=== PATIENT | female | born 1965 | race African-American/Black ===

== ENCOUNTER 2023-10-06 22:02 | Emergency (ER) | payer MEDICAID ==
[~2023-10-06] VITALS: Ht 162.6 cm; Wt 68.5 kg
[2023-10-07 00:55] VITALS: BP 114/88; PULSE 99; RESP 20; TEMP 97.9; O2SAT 99
== END 2023-10-07 01:04 | disposition home or self-care (01) ==
LOC: ER 22:02
DX: M25.532 Pain in left wrist (principal); E78.5 Hyperlipidemia, unspecified; I10 Essential (primary) hypertension; Z86.73 Personal history of transient ischemic attack (TIA), and cerebral infarction without residual deficits
CPT/HCPCS: 93971

== ENCOUNTER 2024-06-27 18:37 | Emergency (ER) | payer MEDICARE, MEDICAID ==
[~2024-06-27] VITALS: Ht 162.6 cm; Wt 69.9 kg
--- NOTE | 2024-06-27 21:28 | ED.PDOC ---
Back pain HPI HPI Comments 58-year-old female presents to ER with complaints of neck pain x1 week. Patient reports that she started experiencing unprovoked pain and "swelling" to anterior neck with associated body aches x1 week. She rates her current pain a 9/10. Denies use of medications for current symptoms. Patient presents to ER ambulatory on arrival, with steady gait, in no distress and notes she is following up with her PCP next month. Denies fever, headache, numbness/tingling, n/v, shortness of breath, chest pain, cough, sore throat or any further symptoms/complaints Chief Complaint: Neck Pain Time Seen by MD: 18:58 Primary Care Provider: "[facility]" Reviewed Notes: Nurses Notes, Medications, Allergies Allergies: Uncoded Allergies: DOXYCLYCINE (Allergy, Unknown, 06/27/24) SERIQUIL (Allergy, Unknown, 06/27/24) SULFA (Allergy, Unknown, 06/27/24) Home Meds Active Scripts Acetaminophen (Acetaminophen) 500 Mg Tab, 500 MG PO Q4HPRN, #30 TAB 0 Refills Prov:WING VELARDE 06/27/24 Amoxicillin & Pot Clavulanate (Amoxicillin/Potassium Cla) 875 Mg Tab, 1 TAB PO BID for 7 Days, #14 TAB 0 Refills Prov:WING VELARDE 06/27/24 Information Source: Patient Mode of Arrival: Ambulatory Past Medical History PAST MEDICAL HISTORY: High Lipids, HTN, Thyroid Surgical History: Cholecystectomy, Hernia Repair, Tonsillectomy Surgical History (Other): CERVICAL SPINE SURGERY X2 REPAIRER HAIRSPRING History: No Pertinent REPAIRER HAIRSPRING History Family History Family History: Unknown Social History Smoker: Non-Smoker Alcohol: Denies ETOH Use Drugs: Denies Drug Use Lives In: Home Constitutional: reports: others ( STATED IN HPI) EENTM: denies: blurred vision, double vision, ear bleeding, ear discharge, ear drainage, ear pain, ear ringing, eye pain, eye redness, hearing loss, mouth pain, mouth swelling, nasal discharge, nose bleeding, nose congestion, nose pain, photophobia, tearing, throat pain, throat swelling, voice changes, others Respiratory: denies: cough, hemoptysis, orthopnea, SOB at rest, shortness of breath, SOB with excertion, stridor, wheezing, others Cardiovascular: denies: chest pain, dizzy spells, diaphoresis, Dyspnea on exertion, edema, irregular heart beat, left arm pain, lightheadedness, palpitations, PND, syncope, others Gastrointestinal: denies: abdomen distended, abdominal pain, blood streaked bowels, constipated, diarrhea, dysphagia, difficulty swallowing, hematemesis, melena, nausea, poor appetite, poor fluid intake, rectal bleeding, rectal pain, vomiting, others Genitourinary: denies: abnormal vagina bleeding, burning, dyspareunia, dysuria, flank pain, frequency, hematuria, incontinence, pain, , vagina discharge, urgency, others Neurological: denies: dizziness, fainting, headache, left sided numbness, left sided weakness, numbness, paresthesia, pre-existing deficit, right sided numbness, right sided weakness, seizure, speech problems, tingling, tremors, weakness, others Musculoskeletal: reports: others ( STATED IN HPI) Integumetry: denies: bruises, change in color, change in hair/nails, dryness, laceration, lesions, lumps, rash, wounds, others Allergic/Immunocompromised: denies: Difficulty Healing, Frequent Infections, Hives, Itching, others Hematologic/Lymphatic: denies: anemia, blood clots, easy bleeding, easy bruising, swollen glands, others Endocrine: denies: excessive hunger, excessive sweating, excessive thirst, excessive urination, flushing, intolerance to cold, intolerance to heat, unexplained weight gain, unexplained weight loss, others Psychiatric: denies: anxiety, bipolar disorder, depression, hopeless, panic disorder, schizophrenia, sleepless, suicidal, others Physical Exam General Appearance: No Apparent Distress HEENT: PERRL/EOMI, Pharyngeal Erythema (Mild swelling/erythema noted to lingual tonsil, no exudates noted. Uvula-normal), TMs Normal Neck: Full Range of Motion, Non-Tender, Thyromegaly (With small left-sided palpable thyroid nodule) Respiratory: Chest Non-Tender, Lungs Clear, No Accessory Muscle Use, No Respiratory Distress, Normal Breath Sounds Cardiovascular: No Murmur, No Gallop, Regular Rate/Rhythm Breast Exam: Deferred Gastrointestinal: NOT DONE Genitalia: Deferred Pelvic: Deferred Rectal: Deferred Extremities: Normal capillary refill, Normal range of motion Neurologic: Alert, academic coach II-XII nml as Tested, No Motor Deficits, Normal Affect, Normal Mood, No Sensory Deficits Cerebellar Function: Normal Reflexes: Normal Skin: Dry, Normal Color, Warm Peripheral Pulses: 2+ carotid (R), 2+ carotid (L), 2+ Radial (R), 2+ Radial (L), 2+ Brachial (R), 2+ Brachial (L) Lymphatic: No Adenopathy Was a procedure done? Was a procedure done?: No Sedation Sedation?: No Back Pain Differential Dx Differential Diagnosis: Fracture, Strain, Other (MASS, NEUROVASCULAR INJURY) X-Ray, Labs, Meds, VS Vital Signs Date Time Temp Pulse Resp B/P (MAP) Pulse Ox O2 Delivery O2 Flow Rate FiO2 06/27/24 21:53 97.7 84 12 132/92 (105) 96 97.7 06/27/24 18:52 98.3 103 16 134/100 (111) 99 Lab Test 06/27/24 21:37 Range/Units White Blood Count 6.2 4.4-10.8 10^3/uL Red Blood Count 4.22 4.0-5.20 10^6/uL Hemoglobin 13.0 12.2-16.2 g/dL Hematocrit 38.8 36.0-46.0 % Mean Corpuscular Volume 91.9 80.0-100.0 fL Mean Corpuscular Hemoglobin 30.7 28.0-32.0 pg Mean Corpuscular Hemoglobin Concent 33.5 32.0-36.0 g/dL Red Cell Distribution Width 13.1 11.8-14.3 % Platelet Count 247 140-450 10^3/uL Mean Platelet Volume 6.8 L 6.9-10.8 fL Neutrophils (%) (Auto) 31.2 L 37.0-80.0 % Lymphocytes (%) (Auto) 54.8 H 10.0-50.0 % Monocytes (%) (Auto) 11.7 0.0-12.0 % Eosinophils (%) (Auto) 1.7 0.0-7.0 % Basophils (%) (Auto) 0.6 0.0-2.0 % Neutrophils # (Auto) 1.9 1.6-8.6 10 ^3/uL Lymphocytes # (Auto) 3.4 0.4-5.4 10 ^3/uL Monocytes # (Auto) 0.7 0-1.3 10 ^3/uL Eosinophils # (Auto) 0.1 0-0.8 10 ^3/uL Basophils # (Auto) 0 0-0.2 10 ^3/uL Nucleated Red Blood Cells 0.3 % Sodium Level 142 136-145 mmol/L Potassium Level 3.5 3.5-5.1 mmol/L Chloride Level 103 98-107 mmol/L Carbon Dioxide Level 31 20-31 mmol/L Anion Gap 8 5-15 Blood Urea Nitrogen 8 L 9-23 mg/dL Creatinine 0.67 0.550-1.02 mg/dL Glomerular Filtration Rate Calc 101 >90 mL/min BUN/Creatinine Ratio 11.9 10.0-20.0 Serum Glucose 77 74-106 mg/dL Calcium Level 10.6 H 8.7-10.4 mg/dL Current Medications Medications (Trade) Dose Ordered Sig/Carlos Enrique Route Start Time Stop Time Status Last Admin Acetaminophen/ Hydrocodone Bitart ([place] 5/325MG Tab) 1 tab ONCE ONCE PO 06/27/24 21:30 06/27/24 21:31 DC 06/27/24 21:43 Ondansetron HCl (Zofran Po) 4 mg ONCE ONCE PO 06/27/24 21:30 06/27/24 21:31 DC 06/27/24 21:43 PATIENT: RAMAN REICH LACCT: [id number]: [id number] : 1965 LOC: ER ROOM / BED: / AGE / SEX: 58 / F ADM STATUS: REG ER SERVICE 16 ORDERING PHYSICIAN: WING VELARDE PROCEDURE(s): NKICT - NECK WITHOUT CONTRAST REASON: neck pain/swelling ORDER NUMBER(s): [id number], ACCESSION NUMBER(s): [id number] _ Procedure: CT NECK WITHOUT CONTRAST Study Date and Requested Time: 06/27/2024 09:24 PM History: neck pain/swelling Comparison: None Dose: CTDI: 19.21 mGy DLP: 550 mGycm Technique: Multiplanar images obtained through the neck without contrast Findings: There is prominence of the lingual tonsil. Otherwise, Nasopharynx, oropharynx, hypopharynx, and larynx normal in caliber without evidence of focal mass. Parotid, submandibular, and sublingual glands within normal limits. Tongue within normal limits. No evidence of significant cervical lymphadenopathy. Heterogeneous appearance of the thyroid gland with a 0.6 cm left thyroid lobe nodule. Postsurgical changes of suboccipital craniotomy. 1 cm right apical mixed ground-glass and solid nodule. Multilevel moderate degenerative changes of the cervical spine. Anterior spinal fusion of C5-C6 with large anterior bridging osteophyte at C4-C5 and C7-T1 Impression: Limited noncontrast imaging. Prominence of the lingual tonsil. Heterogeneous appearance of the thyroid gland with 0.6 cm left thyroid lobe nodule. 1 cm right apical mixed ground-glass and solid nodule. CT chest is recommended for further evaluation. ATED BY: LESLEE MOREAU DO DICTATED DATE/TIME: 06/27/242149 SIGNED BY: LESLEE MOREAU DO SIGNED DATE/TIME: 06/27/242149 CC: CBC reviewed-WBC normal, neutrophils 31.2, lymphocytes 54.8 BMP reviewed-calcium 10.6 [place] 5/325 mg p.o. ordered Zofran 4 mg p.o. ordered Patient tolerating p.o. intake well and reported improvement in symptoms prior to discharge CT neck without contrast reviewed and discussed with patient full details. Patient verbalized understanding Patient provided a copy of CT neck imaging report and advised to follow up with PCP upon discharge further evaluation and for CT chest Advised to follow up with PCP in 1-2 days Patient verbalized understanding and agreeable with current plan of care Advised to return to ER immediately if symptoms worsen Images Reviewed?: Images reviewed and evaluated by me Time of 1ST Reevaluation: 21:22 Reevaluation 1ST: N/A Time of 2ND Reevaluation: 22:42 Reevaluation 2ND: Improved Patient Education/Counseling: Diagnosis, Treatment, Prognosis, Need For Follow Up Family Education/Counseling: No Family Present Departure 1 Departure Time of Disposition: 22:44 Impression: Primary Impression: Lingual tonsillitis Additional Impressions: Thyroid nodule Nodule of apex of right lung Disposition: HOME / SELF CARE / HOMELESS Condition: Stable e-Prescriptions Acetaminophen (Acetaminophen) 500 Mg Tab 500 MG PO Q4HPRN, #30 TAB 0 Refills Prov: WING VELARDE 06/27/24 Amoxicillin & Pot Clavulanate (Amoxicillin/Potassium Cla) 875 Mg Tab 1 TAB PO BID for 7 Days, #14 TAB 0 Refills Prov: WING VELARDE 06/27/24 Discharged With: Friend Critical Care Note Critical Care Time?: No Stability Stability form required: No Heart Score Heart Score: Heart Score Response (Comments) Value History N/A 0 EKG N/A 0 Age N/A 0 Risk Factors N/A 0 Troponin N/A 0 Total 0 WING VELARDE Jun 27, 2024 21:28
[2024-06-27] MEDS: HYDROcodone-ACET 5/325MG TAB PO ONE (21:43)
[2024-06-27] MEDS: ONDANSETRON ODT 4 MG TAB PO ONE (21:43)
[2024-06-27 21:53] VITALS: BP 132/92; TEMP 97.7
--- NOTE | 2024-06-27 21:53 | DVH ---
_ Procedure: CT NECK WITHOUT CONTRAST Study Date and Requested Time: 06/27/2024 09:24 PM History: neck pain/swelling Comparison: None Dose: CTDI: 19.21 mGy DLP: 550 mGycm Technique: Multiplanar images obtained through the neck without contrast Findings: There is prominence of the lingual tonsil. Otherwise, Nasopharynx, oropharynx, hypopharynx, and janny nx normal in caliber without evidence of focal mass. Parotid, submandibular, and sublingual glands within normal limits. Tongue within normal limits. No evidence of significant cervical lymphadenopathy. Heterogeneous appearance of the thyroid gland with a 0.6 cm left thyroid lobe nodule. Postsurgical changes of suboccipital craniotomy. 1 cm right apical mixed ground-glass and solid nodule. Multilevel moderate degenerative changes of the cervical spine. Anterior spinal fusion of C5-C6 with large anterior bridging osteophyte at C4-C5 and C7-T1 Impression: Limited noncontrast imaging. Prominence of the lingual tonsil. Heterogeneous appearance of the thyroid gland with 0.6 cm left thyroid lobe nodule. 1 cm right apical mixed ground-glass and solid nodule. CT chest is recommended for further evaluatio n.
[2024-06-27 22:03] LABS: Basophils # (auto) 0 10 ^3/uL (0-0.2); Basophils % (auto) 0.6 % (0.0-2.0); Eosinophils # (auto) 0.1 10 ^3/uL (0-0.8); Eosinophils % (auto) 1.7 % (0.0-7.0); Hematocrit 38.8 % (36.0-46.0); Lymphocytes # (auto) 3.4 10 ^3/uL (0.4-5.4); Lymphocytes % (auto) 54.8 % (10.0-50.0); Mean Corpuscular Hemoglobin 30.7 pg (28.0-32.0); Mean Corpuscular Hgb Conc. 33.5 g/dL (32.0-36.0); Mean Corpuscular Volume 91.9 fL (80.0-100.0); Monocytes # (auto) 0.7 10 ^3/uL (0-1.3); Monocytes % (auto) 11.7 % (0.0-12.0); Neutrophils # (auto) 1.9 10 ^3/uL (1.6-8.6); Neutrophils % (auto) 31.2 % (37.0-80.0); Nucleated Red Blood Cells % 0.3 %; Platelet Count (auto) 247 10^3/uL (140-450); Red Blood Cells 4.22 10^6/uL (4.0-5.20); Red Cell Distribution Width 13.1 % (11.8-14.3); White Blood Cell 6.2 10^3/uL (4.4-10.8)
[2024-06-27 22:10] LABS: Chloride 103 mmol/L (98-107); Sodium 142 mmol/L (136-145)
[2024-06-27 22:16] LABS: BUN/Creatinine Ratio 11.9 (10.0-20.0); Glucose 77 mg/dL (74-106)
[2024-06-27 22:28] LABS: Blood Urea Nitrogen 8 mg/dL (9-23); Calcium 10.6 mg/dL (8.7-10.4); Potassium 3.5 mmol/L (3.5-5.1)
[2024-06-27 22:39] LABS: Anion Gap 8 (5-15); Carbon Dioxide 31 mmol/L (20-31)
[2024-06-27] MEDS ORDERED: ACET500T58 PO (22:40)
[2024-06-27] MEDS ORDERED: AMOX875T4 PO (22:40)
[2024-06-27 23:31] VITALS: PULSE 84; RESP 12; O2SAT 96
== END 2024-06-27 23:32 | disposition home or self-care (01) ==
LOC: ER 18:37
DX: J03.90 Acute tonsillitis, unspecified (principal); E04.1 Nontoxic single thyroid nodule; R91.1 Solitary pulmonary nodule; I10 Essential (primary) hypertension; E78.5 Hyperlipidemia, unspecified; Z98.890 Other specified postprocedural states; Z90.89 Acquired absence of other organs; Z90.49 Acquired absence of other specified parts of digestive tract; Z88.2 Allergy status to sulfonamides; Z88.1 Allergy status to other antibiotic agents
CPT/HCPCS: 36415; 70490; 80048; 85025; 99284; Q0162

== ENCOUNTER 2024-08-04 10:16 | Emergency (ER) | payer OTHER, MEDICAID ==
[~2024-08-04] VITALS: Ht 162.6 cm; Wt 68.3 kg
[~2024-08-04 10:16] MED LIST: ACET500T58 PO; AMOX875T4 PO
[2024-08-04 10:26] VITALS: BP 142/95; PULSE 106; RESP 20; TEMP 98.4; O2SAT 99
--- NOTE | 2024-08-04 11:07 | ED.PDOC ---
Back pain HPI HPI Comments A 58 YEAR OLD FEMALE PRESENTS TO THE ED WITH COMPLAINT OF NECK PAIN. 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 PATIENT NOTES THAT SHE HAS A HISTORY OF CHRONIC NECK PAIN AND STATES THAT IT WAS AGGRAVATED WHILE PAINTING. PATIENT REPORTS SHE HAS BEEN TAKING TYLENOL FOR HER PAIN WITH NO IMPROVEMENT. PATIENT DENIES NECK INJURY, FEVER, CHILLS, SHORTNESS OF BREATH, CHEST PAIN, ABDOMINAL PAIN, NAUSEA, VOMITING, HEADACHE, OR OTHER COMPLAINTS. NO OTHER SYMPTOMS OR MODIFYING FACTORS AT THIS TIME. PATIENT IS ALERT, ORIENTED X 4, AND HAS STEADY GAIT. Chief Complaint: Neck Pain Time Seen by MD: 10:17 Primary Care Provider: " [facility]" Reviewed Notes: Nurses Notes, Medications, Allergies Allergies: Coded Allergies: Erythromycin (Verified Allergy, Unknown, 08/04/24) Latex (Verified Allergy, Unknown, 08/04/24) Midodrine (Verified Allergy, Unknown, 08/04/24) Quetiapine (Verified Allergy, Unknown, 08/04/24) Uncoded Allergies: BEE STINGS (Allergy, Unknown, 08/04/24) DARVOCET (Allergy, Unknown, 08/04/24) DOXYCLYCINE (Allergy, Unknown, 06/27/24) SULFA (Allergy, Unknown, 06/27/24) Home Meds Active Scripts Methocarbamol (Methocarbamol) 750 Mg Tab, 750 MG PO BID, #20 TAB Prov:DANNI TELLEZ 08/04/24 Tramadol Hcl (Tramadol Hcl) 50 Mg Tab, 50 MG PO BID, #20 TAB Prov:DANNI TELLEZ 08/04/24 Acetaminophen (Acetaminophen) 500 Mg Tab, 500 MG PO Q4HPRN, #30 TAB 0 Refills Prov:WING VELARDE 06/27/24 Amoxicillin & Pot Clavulanate (Amoxicillin/Potassium Cla) 875 Mg Tab, 1 TAB PO BID for 7 Days, #14 TAB 0 Refills Prov:WING VELARDE 06/27/24 Information Source: Patient Mode of Arrival: Ambulatory Timing: Days Duration: Since onset, Days Location of Back pain: (B) Cervical Severity: Moderate Prehospital treatment: None Quality: Aching, Cramping Onset: Twisting History of: Other (CHRONIC NECK PAIN) Modifying Factors: Movement Associated signs and symptoms: None Past Medical History PAST MEDICAL HISTORY: High Lipids, HTN, Thyroid Past Medical History (Other): CHRONIC NECK PAIN Surgical History: Cholecystectomy, Hernia Repair, Tonsillectomy CONSUMER INSIGHTS INTERN History: No Pertinent CONSUMER INSIGHTS INTERN History Family History Family History: Reviewed,noncontributory to illness Social History Smoker: Non-Smoker Alcohol: Denies ETOH Use Drugs: Denies Drug Use Lives In: Home Constitutional: denies: chills, diaphoresis, fatigue, fever, malaise, sweats, weakness, others EENTM: denies: blurred vision, double vision, ear bleeding, ear discharge, ear drainage, ear pain, ear ringing, eye pain, eye redness, hearing loss, mouth pain, mouth swelling, nasal discharge, nose bleeding, nose congestion, nose pain, photophobia, tearing, throat pain, throat swelling, voice changes, others Respiratory: denies: cough, hemoptysis, orthopnea, SOB at rest, shortness of breath, SOB with excertion, stridor, wheezing, others Cardiovascular: denies: chest pain, dizzy spells, diaphoresis, Dyspnea on exertion, edema, irregular heart beat, left arm pain, lightheadedness, palpitations, PND, syncope, others Gastrointestinal: denies: abdomen distended, abdominal pain, blood streaked bowels, constipated, diarrhea, dysphagia, difficulty swallowing, hematemesis, melena, nausea, poor appetite, poor fluid intake, rectal bleeding, rectal pain, vomiting, others Genitourinary: denies: abnormal vagina bleeding, burning, dyspareunia, dysuria, flank pain, frequency, hematuria, incontinence, pain, , vagina discharge, urgency, others Neurological: denies: dizziness, fainting, headache, left sided numbness, left sided weakness, numbness, paresthesia, pre-existing deficit, right sided numbness, right sided weakness, seizure, speech problems, tingling, tremors, weakness, others Musculoskeletal: reports: muscle pain, neck pain; denies: back pain, gout, joint pain, joint swelling, muscle stiffness, others Integumetry: denies: bruises, change in color, change in hair/nails, dryness, laceration, lesions, lumps, rash, wounds, others Allergic/Immunocompromised: denies: Difficulty Healing, Frequent Infections, Hives, Itching, others Hematologic/Lymphatic: denies: anemia, blood clots, easy bleeding, easy bruising, swollen glands, others Endocrine: denies: excessive hunger, excessive sweating, excessive thirst, excessive urination, flushing, intolerance to cold, intolerance to heat, unexplained weight gain, unexplained weight loss, others Psychiatric: denies: anxiety, bipolar disorder, depression, hopeless, panic disorder, schizophrenia, sleepless, suicidal, others All Other Systems: Reviewed and Negative Physical Exam General Appearance: No Apparent Distress, Normal HEENT: Normal ENT Inspection, PERRL/EOMI, Pharynx Normal, TMs Normal Neck: Full Range of Motion, Normal Inspection, Supple, Tender Lateral (TENDERNESS AND MUSCLE SPAM ON POSTERIOR NECK, NO BONY TENDERNESS, SWELLING AND SWELLING. ) Respiratory: Chest Non-Tender, Lungs Clear, No Accessory Muscle Use, No Respiratory Distress, Normal Breath Sounds Cardiovascular: No Edema, No JVD, No Murmur, No Gallop, Normal Peripheral Pulses, Regular Rate/Rhythm Breast Exam: Deferred Gastrointestinal: No Organomegaly, Non Tender, No Pulsatile Mass, Normal Bowel Sounds, Soft Genitalia: Deferred Pelvic: Deferred Rectal: Deferred Extremities: No calf tenderness, Normal capillary refill, Normal inspection, Normal range of motion, Non-tender, No pedal edema Musculoskeletal : Apperance: Normal Neurologic: Alert, electronic components assembler II-XII nml as Tested, No Motor Deficits, Normal Affect, Normal Mood, No Sensory Deficits Cerebellar Function: Normal Reflexes: Normal Skin: Dry, Normal Color, Warm Peripheral Pulses: 2+ carotid (R), 2+ carotid (L) Lymphatic: No Adenopathy Was a procedure done? Was a procedure done?: No Back Pain Differential Dx Differential Diagnosis: DJD, Musculoskeletal Pain, Strain X-Ray, Labs, Meds, VS Vital Signs Date Time Temp Pulse Resp B/P (MAP) Pulse Ox O2 Delivery O2 Flow Rate FiO2 08/04/24 10:26 98.4 106 20 142/95 (111) 99 98.4 08/04/24 10:26 98.4 106 20 142/95 (111) 99 98.4 X-Ray, Labs, Meds, VS Comment EXTERNAL MEDICAL RECORDS REVIEWED: [NONE] INDEPENDENT HISTORIANS: [NONE] SOCIAL DETERMINANTS OF HEALTH: [NONE] LABS ORDERED: NONE REVIEWED AND INTERPRETED RESULTS: NONE IMAGING ORDERED: XR C-SPINE: [INTERPRETED BY ME. NO ACUTE FINDINGS. NO FRACTURES OR DISLOCATION. PENDING RADIOLOGIST REPORT.] TREATMENTS ORDERED: NONE PROCEDURES PERFORMED: NONE CRITICAL CARE TIME: NONE I HAVE DISCUSSED THE PATIENT WITH THE ATTENDING PHYSICIAN DR. GALINDO AND HE AGREES WITH THE PATIENT'S PLAN OF CARE AND DISPOSITION. BASED ON HISTORY OF PRESENT ILLNESS, AND PHYSICAL EXAM, PATIENT WILL BE DISCHARGED HOME. DISCUSSED PLAN FOR DISCHARGE HOME WITH RX [ULTRAM AND ROBAXIN]. MEDICATION WARNINGS GIVEN. SHARED DECISION MAKING: PATIENT INSTRUCTED TO FOLLOW UP WITH PRIMARY CARE PROVIDER IN 1-2 DAYS FOR RE-EVALUATION OF SYMPTOMS. PATIENT VERBALIZES UNDERSTANDING TO RETURN TO ED FOR NEW OR WORSENING SYMPTOMS OR IF FOLLOW UP WITH PCP CANNOT BE OBTAINED. PATIENT FEELS COMFORTABLE GOING HOME AT THIS TIME. ALL QUESTIONS ADDRESSED AT TIME OF DISCHARGE. Images Reviewed?: Images reviewed and evaluated by me Time of 1ST Reevaluation: 11:15 Reevaluation 1ST: Improved Patient Education/Counseling: Diagnosis, Treatment, Need For Follow Up Family Education/Counseling: Diagnosis, Treatment, Need For Follow Up Medical Screening: No EMC Exist At This Time Departure 1 Departure Time of Disposition: 11:15 Impression: Primary Impression: Cervical muscle strain Qualified Codes: S16.1XXA - Strain of muscle, fascia and tendon at neck level, initial encounter Additional Impression: DDD (degenerative disc disease), cervical Disposition: 01 HOME / SELF CARE / HOMELESS Condition: Stable Additional Instructions: FOLLOW-UP WITH PCP IN 1 TO 2 DAYS. TAKE MEDICATIONS PRESCRIBED. RETURN TO ED FOR ANY NEW OR WORSENING SYMPTOMS. e-Prescriptions Methocarbamol (Methocarbamol) 750 Mg Tab 750 MG PO BID, #20 TAB Prov: DANNI TELLEZ 08/04/24 Tramadol Hcl (Tramadol Hcl) 50 Mg Tab 50 MG PO BID, #20 TAB Prov: DANNI TELLEZ 08/04/24 Discharged With: Self Critical Care Note Critical Care Time?: No Stability Stability form required: No I personally scribed for DANNI TELLEZ ([email or web address]) on 08/04/24 at 11:07. Electronically submitted by Jay Perkins ([email or web address]). DANNI TELLEZ Aug 04, 2024 11:07
[2024-08-04] MEDS ORDERED: TRAM50TA2 PO (11:09)
[2024-08-04] MEDS ORDERED: METH-1182 PO (11:09)
--- NOTE | 2024-08-04 11:12 | DVH ---
INDICATION: NECK PAIN, NO INJURY TECHNIQUE: 3 views of the cervical spine were obtained. COMPARISON: None FINDINGS: The cervical spine is visualized from C1-C7. There is loss of the normal cervical lordosis which can be positional. No fractures or subluxations are identified. Multilevel degenerative changes. Cervical hardware at C5-6. Alignment appears unremarkable. Prevertebral soft tissues are within normal limits. IMPRESSION: 1. No evidence for fracture or subluxation.
== END 2024-08-04 11:15 | disposition home or self-care (01) ==
LOC: ER 10:16
DX: S16.1XXA Strain of muscle, fascia and tendon at neck level, initial encounter (principal); M50.30 Other cervical disc degeneration, unspecified cervical region; I10 Essential (primary) hypertension; G89.29 Other chronic pain; E78.5 Hyperlipidemia, unspecified; E03.9 Hypothyroidism, unspecified; Z90.49 Acquired absence of other specified parts of digestive tract; Z90.89 Acquired absence of other organs; Z98.890 Other specified postprocedural states; Z91.030 Bee allergy status; Z88.2 Allergy status to sulfonamides; Z88.1 Allergy status to other antibiotic agents; Z79.899 Other long term (current) drug therapy; X58.XXXA Exposure to other specified factors, initial encounter; Y93.89 Activity, other specified; Y92.89 Other specified places as the place of occurrence of the external cause; Y99.8 Other external cause status
CPT/HCPCS: 72040

== ENCOUNTER 2024-09-25 10:22 | Emergency (ER) | payer MEDICARE, MEDICAID ==
[~2024-09-25] VITALS: Ht 162.6 cm; Wt 64.9 kg
[~2024-09-25 10:22] MED LIST changes: +METH-1182 PO; +TRAM50TA2 PO
[2024-09-25 11:30] VITALS: BP 134/78; PULSE 97; RESP 17; TEMP 98; O2SAT 97
[2024-09-25] MEDS ORDERED: LIDO5DIS21 TOP (11:49)
[2024-09-25] MEDS ORDERED: METH-1181 PO (11:49)
[2024-09-25] MEDS ORDERED: HYDR-4902 PO (11:49)
--- NOTE | 2024-09-25 11:50 | ED.PDOC ---
Back pain HPI HPI Comments This is a 59-year-old female with a pertinent MHx of chronic upper and lower back pain that presents with a chief complaint of atraumatic lower back pain. Patient currently follows up with Jagdeep Hernandez and reports she is pending pain management referral for the symptoms listed above. Currently reports she is unable to get adequate relief with [id number] Tylenol Motrin. Her pain is aggravated with movement and alleviated at rest. Denies history of chronic steroid use or history of osteoporosis Denies any history of cancer Denies fevers chills night sweats nausea vomiting unintentional weight loss Denies IV drug use history of HIV/TB Denies abdominal "tearing" pain Denies syncope Denies urinary incontinence or urinary changes Denies numbness tingling of the groin or inner thigh Denies previous back procedure or surgery Chief Complaint: Back Pain Time Seen by MD: 11:23 Primary Care Provider: JAGDEEP HERNANDEZ Reviewed Notes: Nurses Notes, Medications, Allergies Allergies: Coded Allergies: Erythromycin (Verified Allergy, Unknown, 08/04/24) Latex (Verified Allergy, Unknown, 08/04/24) Midodrine (Verified Allergy, Unknown, 08/04/24) Quetiapine (Verified Allergy, Unknown, 08/04/24) Uncoded Allergies: BEE STINGS (Allergy, Unknown, 08/04/24) DARVOCET (Allergy, Unknown, 08/04/24) DOXYCLYCINE (Allergy, Unknown, 06/27/24) SULFA (Allergy, Unknown, 06/27/24) Home Meds Active Scripts Methocarbamol (Methocarbamol) 750 Mg Tab, 750 MG PO BID, #20 TAB Prov:DANNI TELLEZ 08/04/24 Tramadol Hcl (Tramadol Hcl) 50 Mg Tab, 50 MG PO BID, #20 TAB Prov:DANNI TELLEZ 08/04/24 Acetaminophen (Acetaminophen) 500 Mg Tab, 500 MG PO Q4HPRN, #30 TAB 0 Refills Prov:WING VELARDE 06/27/24 Amoxicillin & Pot Clavulanate (Amoxicillin/Potassium Cla) 875 Mg Tab, 1 TAB PO BID for 7 Days, #14 TAB 0 Refills Prov:WING VELARDE 06/27/24 Information Source: Patient Mode of Arrival: Ambulatory Past Medical History PAST MEDICAL HISTORY: High Lipids, HTN, Thyroid Surgical History: Cholecystectomy, Hernia Repair, Tonsillectomy 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 History Family History Family History: Reviewed,noncontributory to illness Social History Smoker: Non-Smoker Alcohol: Denies ETOH Use Drugs: Denies Drug Use Lives In: Home All Other Systems: Reviewed and Negative (PER HPI) Physical Exam General Appearance: No Apparent Distress, Normal HEENT: Normal ENT Inspection, Pharynx Normal, TMs Normal Neck: Full Range of Motion, Non-Tender, Normal, Normal Inspection Respiratory: Chest Non-Tender, Lungs Clear, No Accessory Muscle Use, No Respiratory Distress, Normal Breath Sounds Cardiovascular: No Edema, No JVD, No Murmur, No Gallop, Normal Peripheral Pulses, Regular Rate/Rhythm Breast Exam: Deferred Gastrointestinal: No Organomegaly, Non Tender, No Pulsatile Mass, Normal Bowel Sounds, Soft Genitalia: Deferred Pelvic: Deferred Rectal: Deferred Extremities: No calf tenderness, Normal capillary refill, Normal inspection, Normal range of motion, Non-tender, No pedal edema Musculoskeletal : Apperance: Normal Neurologic: Alert, insole bottom filler II-XII nml as Tested, No Motor Deficits, Normal Affect, Normal Mood, No Sensory Deficits Cerebellar Function: Normal Reflexes: Normal Skin: Dry, Normal Color, Warm Lymphatic: No Adenopathy Was a procedure done? Was a procedure done?: No Images 1 - No midline tenderness. No bony step-offs on palpation. Bilateral lumbar sacral paraspinal TTP. Back Pain Differential Dx Differential Diagnosis: Musculoskeletal Pain X-Ray, Labs, Meds, VS Vital Signs Date Time Temp Pulse Resp B/P (MAP) Pulse Ox O2 Delivery O2 Flow Rate FiO2 09/25/24 11:30 98.0 97 17 134/78 (96) 97 98.0 09/25/24 11:30 97 17 97 Room Air 09/25/24 10:50 98.0 107 18 138/88 (105) 96 98.0 X-Ray, Labs, Meds, VS Comment I considered cauda equina, spinal cord compression, vertebral malignancy/mets, acute spinal fracture, vertebral osteomyelitis, epidural abscess, infected or obstructed kidney stone, however this is less likely as the patient does not present with lower back pain red flags symptoms such as bowel or bladder dysfunction, saddle anesthesia, paresthesia, and without any history of malignancy or recent back trauma or spinal interventions. Therefore imaging studies such as a lumbar MRI were not indicated on today's visit. Presentation most consistent with nonemergent musculoskeletal etiology versus nonemergent disc herniation. ED workup: Defer imaging and lab work for outpatient follow up at this time Disposition: Discharge. Strict return precautions discussed with the patient with full understanding. Supportive care advised (rest, ice, heat, NSAIDs, stretching exercises) Massage muscles with cold pack or ice for 20 minutes 4 times per day. Usually most useful if there is swelling during the first 48 hours Heating pad on the most painful area for 20 minutes to relieve muscle spasm Sleep and the most comfortable sleeping position (usually on the side with knees bent) Light stretching, no strenuous activity, avoid frequent bending, avoid carrying heavy objects Discussed possible benefits of yoga and acupuncture Return precautions discussed including Inability to walk/bear weight Paresthesia/weakness/leg pain Fecal/urinary incontinence Any worsening symptoms Checked the CURES website, no history of narcotic use within the past year. Will prescribe [place] p.o. for pain management. Education provided on possible side effects of medication including drowsiness, nausea, respiratory distress, etc. Do not drive, operate heavy machinery or make legal decisions while taking medication. Follow-up with your PMD within 24 to 48 hours. Additional MDM Review of External, Non-ED records: External records reviewed. Discussion with independent historian (EMS, family) history obtained from the patient at bedside Chronic conditions affecting care: none Social determinants of health affecting care: none Consideration of admission (observation or admission): I considered escalation of care to admission for this patient, however given the reassuring workup, the patient is safe for outpatient management. Time of 1ST Reevaluation: 11:46 Reevaluation 1ST: Improved Patient Education/Counseling: Diagnosis, Treatment Family Education/Counseling: Diagnosis, Treatment Departure 1 Departure Time of Disposition: 11:47 Impression: Primary Impression: DDD (degenerative disc disease), cervical Additional Impression: Acute on chronic back pain Disposition: HOME / SELF CARE / HOMELESS Condition: Stable e-Prescriptions Lidocaine (LIDODERM 5% TOPICAL PATCH) 1 Patch Ph 1 PATCH TOP DAILY for 30 Days, #30 PATCH 0 Refills Prov: BELKIS FRANCE NP 09/25/24 Hydrocodone-Acetaminophen (Hydrocodone Bitartrate/AC 5-325 mg) 1 Tab Tab 1 TAB PO Q6HP PRN for 2 Days, #8 TAB 0 Refills Prov: BELKIS FRANCE NP 09/25/24 Methocarbamol (Methocarbamol) 500 Mg Tab 500 MG PO Q8HP PRN for 10 Days, #30 TAB 0 Refills Prov: BELKIS FRANCE NP 09/25/24 Discharged With: Relative Critical Care Note Critical Care Time?: No Stability Stability form required: No Heart Score Heart Score: Heart Score Response (Comments) Value History N/A 0 EKG N/A 0 Age N/A 0 Risk Factors N/A 0 Troponin N/A 0 Total 0 BELKIS FRANCE [facility] September 25, 2024 11:50
== END 2024-09-25 11:59 | disposition home or self-care (01) ==
LOC: ER 10:22
DX: M50.30 Other cervical disc degeneration, unspecified cervical region (principal); M54.50 Low back pain, unspecified; G89.29 Other chronic pain; I10 Essential (primary) hypertension; E78.5 Hyperlipidemia, unspecified; Z88.1 Allergy status to other antibiotic agents; Z88.2 Allergy status to sulfonamides; Z90.49 Acquired absence of other specified parts of digestive tract; Z90.89 Acquired absence of other organs; Z98.890 Other specified postprocedural states

== ENCOUNTER 2024-11-23 10:38 | Emergency (ER) | payer OTHER, MEDICAID ==
[~2024-11-23] VITALS: Ht 162.6 cm; Wt 65.1 kg
[~2024-11-23 10:38] MED LIST changes: +HYDR-4902 PO; +LIDO5DIS21 TOP; +METH-1181 PO
--- NOTE | 2024-11-23 10:57 | ED.PDOC ---
SOB-HPI HPI Comments A 59 YEAR OLD FEMALE PRESENTS TO THE ED WITH COMPLAINT OF COUGH x 1 MONTH. PATIENT STATES THAT SHE HAS BEEN HAVING A LINGERING COUGH FOR THE LAST MONTH. PATIENT IS A SMOKER AND CONTINUES TO SMOKE. PATIENT MENTIONS THAT SHE IS CURRENTLY ON KEFLEX FOR A UTI THAT SHE HAD DIAGNOSED YESTERDAY. PATIENT DENIES FEVER, CHILLS, CHEST PAIN, ABDOMINAL PAIN, NAUSEA, VOMITING, HEADACHE, OR OTHER COMPLAINTS. NO OTHER SYMPTOMS OR MODIFYING FACTORS AT THIS TIME. PATIENT IS ALERT, ORIENTED X 4, AND HAS STEADY GAIT. Time Seen by MD: 10:50 Primary Care Provider: JAGDEEP JAMES Reviewed notes: Nurses Notes, Medications, Allergies Information Source: Patient Mode of Arrival: Ambulatory Severity: Moderate Timing: Minutes Duration: Since onset Context: With Light Exertion PE Risk Factors: None History of: None Prehospital treatment: None Modifying Factors: Nothing Associated Signs and Symptoms: Wheeze, Cough If cough with SOB: Productive Past Medical History PAST MEDICAL HISTORY: Asthma, High Lipids, HTN, Thyroid Past Medical History (Other): POSSIBLE COPD Surgical History: Cholecystectomy, Hernia Repair, Tonsillectomy HOSTAGE NEGOTIATOR 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: No Pertinent HOSTAGE NEGOTIATOR History Family History Family History: Reviewed,noncontributory to illness Social History Smoker: Cigarettes Alcohol: Denies ETOH Use Drugs: Denies Drug Use Lives In: Home Constitutional: denies: chills, diaphoresis, fatigue, fever, malaise, sweats, weakness, others EENTM: denies: blurred vision, double vision, ear bleeding, ear discharge, ear drainage, ear pain, ear ringing, eye pain, eye redness, hearing loss, mouth pain, mouth swelling, nasal discharge, nose bleeding, nose congestion, nose pain, photophobia, tearing, throat pain, throat swelling, voice changes, others Respiratory: reports: cough, shortness of breath, wheezing; denies: hemoptysis, orthopnea, SOB at rest, SOB with excertion, stridor, others Cardiovascular: denies: chest pain, dizzy spells, diaphoresis, Dyspnea on exertion, edema, irregular heart beat, left arm pain, lightheadedness, palpitations, PND, syncope, others Gastrointestinal: denies: abdomen distended, abdominal pain, blood streaked bowels, constipated, diarrhea, dysphagia, difficulty swallowing, hematemesis, melena, nausea, poor appetite, poor fluid intake, rectal bleeding, rectal pain, vomiting, others Genitourinary: reports: burning, dysuria; denies: abnormal vagina bleeding, dyspareunia, flank pain, frequency, hematuria, incontinence, pain, , vagina discharge, urgency, others Neurological: denies: dizziness, fainting, headache, left sided numbness, left sided weakness, numbness, paresthesia, pre-existing deficit, right sided numbness, right sided weakness, seizure, speech problems, tingling, tremors, weakness, others Musculoskeletal: denies: back pain, gout, joint pain, joint swelling, muscle pain, muscle stiffness, neck pain, others Integumetry: denies: bruises, change in color, change in hair/nails, dryness, laceration, lesions, lumps, rash, wounds, others Allergic/Immunocompromised: denies: Difficulty Healing, Frequent Infections, Hives, Itching, others Hematologic/Lymphatic: denies: anemia, blood clots, easy bleeding, easy bruising, swollen glands, others Endocrine: denies: excessive hunger, excessive sweating, excessive thirst, excessive urination, flushing, intolerance to cold, intolerance to heat, unexplained weight gain, unexplained weight loss, others Psychiatric: denies: anxiety, bipolar disorder, depression, hopeless, panic disorder, schizophrenia, sleepless, suicidal, others All Other Systems: Reviewed and Negative Physical Exam General Appearance: No Apparent Distress, Normal HEENT: Normal ENT Inspection, PERRL/EOMI, Pharynx Normal, TMs Normal Neck: Full Range of Motion, Non-Tender, Normal, Normal Inspection Respiratory: Chest Non-Tender, Decreased Breath Sounds, Expiration, No Accessory Muscle Use, No Respiratory Distress, Rhonchi, Wheezing (MILD) Cardiovascular: No Edema, No JVD, No Murmur, No Gallop, Normal Peripheral Pulses, Regular Rate/Rhythm Breast Exam: Deferred Gastrointestinal: No Organomegaly, Non Tender, No Pulsatile Mass, Normal Bowel Sounds, Soft Genitalia: Deferred Pelvic: Deferred Rectal: Deferred Extremities: No calf tenderness, Normal capillary refill, Normal inspection, Normal range of motion, Non-tender, No pedal edema Musculoskeletal : Apperance: Normal Neurologic: Alert, cut tobacco bulker II-XII nml as Tested, No Motor Deficits, Normal Affect, Normal Mood, No Sensory Deficits Cerebellar Function: Normal Reflexes: Normal Skin: Dry, Normal Color, Warm Peripheral Pulses: 2+ carotid (R), 2+ carotid (L) Lymphatic: No Adenopathy Was a procedure done? Was a procedure done?: No Differential Dx Differential Diagnosis: Asthma, Bronchitis, Pneumonia, Sinusitis, Allergic Rhinitis, Other (UTI ) X-Ray, Labs, Meds, VS Vital Signs Date Time Temp Pulse Resp B/P (MAP) Pulse Ox O2 Delivery O2 Flow Rate FiO2 11/23/24 12:52 105 16 95 Room Air 11/23/24 12:52 98.9 105 16 121/81 (94) 95 98.9 11/23/24 12:52 20 95 Room Air 11/23/24 11:37 18 97 Room Air* 0 21 21 11/23/24 10:54 16 96 Room Air* 0 21 11/23/24 10:40 98.0 104 16 130/89 (103) 96 98.0 Lab Test 11/23/24 11:02 11/23/24 10:59 Range/Units White Blood Count 5.9 4.4-10.8 10^3/uL Red Blood Count 4.51 4.0-5.20 10^6/uL Hemoglobin 13.8 12.2-16.2 g/dL Hematocrit 40.4 36.0-46.0 % Mean Corpuscular Volume 89.5 80.0-100.0 fL Mean Corpuscular Hemoglobin 30.5 28.0-32.0 pg Mean Corpuscular Hemoglobin Concent 34.0 32.0-36.0 g/dL Red Cell Distribution Width 13.1 11.8-14.3 % Platelet Count 311 140-450 10^3/uL Mean Platelet Volume 6.9 6.9-10.8 fL Neutrophils (%) (Auto) 56.5 37.0-80.0 % Lymphocytes (%) (Auto) 31.4 10.0-50.0 % Monocytes (%) (Auto) 10.1 0.0-12.0 % Eosinophils (%) (Auto) 1.3 0.0-7.0 % Basophils (%) (Auto) 0.7 0.0-2.0 % Neutrophils # (Auto) 3.3 1.6-8.6 10 ^3/uL Lymphocytes # (Auto) 1.8 0.4-5.4 10 ^3/uL Monocytes # (Auto) 0.6 0-1.3 10 ^3/uL Eosinophils # (Auto) 0.1 0-0.8 10 ^3/uL Basophils # (Auto) 0 0-0.2 10 ^3/uL Nucleated Red Blood Cells 0.1 % Sodium Level 145 136-145 mmol/L Potassium Level 3.5 3.5-5.1 mmol/L Chloride Level 107 98-107 mmol/L Carbon Dioxide Level 30 20-31 mmol/L Anion Gap 8 5-15 Blood Urea Nitrogen 6 L 9-23 mg/dL Creatinine 0.76 0.550-1.02 mg/dL Glomerular Filtration Rate Calc 90 >90 mL/min BUN/Creatinine Ratio 7.9 L 10.0-20.0 Serum Glucose 95 74-106 mg/dL Calcium Level 10.7 H 8.7-10.4 mg/dL Urine Color Yellow Yellow Urine Clarity Turbid H Clear Urine pH 5.5 5.0-9.0 Urine Specific [place] 1.026 1.001-1.035 Urine Protein Trace H Negative Urine Ketones Negative Negative Urine Blood 2+ H Negative /uL Urine Nitrite Negative Negative Urine Bilirubin Negative Negative Urine Urobilinogen 2 H Negative mg/dL Urine Leukocyte Esterase 3+ Negative /uL Urine RBC 8 0 - 4 /hpf Urine Microscopic WBC 4 0-5 /HPF Urine Squamous Epithelial Cells Few <5 /hpf Urine Bacteria Few H None Seen /hpf Urine Mucus Few None Seen Urine Glucose Normal Normal mg/dL Current Medications Medications (Trade) Dose Ordered Sig/Carlos Enrique Route Start Time Stop Time Status Last Admin Albuterol (Ventolin Medneb) 5 mg ONCE ONCE NEB 11/23/24 11:30 11/23/24 11:31 DC 11/23/24 11:36 Ipratropium [place] (Atrovent Medneb) 1 mg ONCE ONCE NEB 11/23/24 11:30 11/23/24 11:31 DC 11/23/24 11:36 Ceftriaxone Sodium (Rocephin) 1,000 mg ONCE ONCE IM 11/23/24 12:00 11/23/24 12:01 DC 11/23/24 12:22 PATIENT: RAMAN REICH LACCT: [id number]: [id number] : 1965 LOC: ER ROOM / BED: / AGE / SEX: 59 / F ADM STATUS: REG ER SERVICE 1054 ORDERING PHYSICIAN: DANNI TELLEZ PROCEDURE(s): CXR2 - CHEST TWO VIEWS ROUTINE REASON: COUGH XONE MONTH ORDER NUMBER(s): [id number], ACCESSION NUMBER(s): [id number] EXAM: XY CHEST TWO VIEWS ROUTINE CLINICAL HISTORY: COUGH XONE MONTH COMPARISON: None TECHNIQUE: Frontal and lateral view of the chest was obtained FINDINGS: Lines and Tubes: None Lungs: No focal consolidation. Pleura: No effusion. No pneumothorax. Cardiomediastinal contours: Unremarkable Atherosclerotic vascular calcifications of the thoracic aorta are noted. Bones: No acute osseous abnormality. IMPRESSION: No acute cardiopulmonary disease. ATED BY: KATY LOU MD DICTATED DATE/TIME: 11/23/241128 SIGNED BY: KATY LOU MD SIGNED DATE/TIME: 11/23/241128 X-Ray, Labs, Meds, VS Comment EXTERNAL MEDICAL RECORDS: NONE INDEPENDENT HISTORIANS: NONE SOCIAL DETERMINANTS OF HEALTH: NONE LABS ORDERED: CBC, BMP, UA REVIEWED AND INTERPRETED RESULTS: NONE IMAGING ORDERED: CHEST XR CHEST X RAY: INTERPRETED BY ME. NO ACUTE FINDINGS. NO PNEUMONIA. NO CONSOLIDATIONS. NO INFILTRATES. PENDING RADIOLOGIST REPORT. TREATMENTS ORDERED: ROCEPHIN 1GM IM PATIENT'S CASE AND RESULTS HAVE BEEN DISCUSSED WITH DR. EUBANKS AND THEY AGREE WITH MY PLAN OF CARE. RX: LEVAQUIN, PHENERGAN DM, VENTOLIN SOLO AND MEDROL DOSE PACK I HAVE DISCUSSED IMAGING AND LAB RESULTS WITH THE PATIENT AND HAVE INSTRUCTED THE PATIENT TO FOLLOW UP WITH THEIR PCP IN 1-2 DAYS. THE PATIENT FULLY UNDERSTANDS THEIR RESULTS AND ARE AWARE THEY NEED TO FOLLOW UP WITH THEIR PCP FOR FURTHER EVALUATION IF THEIR SYMPTOMS PERSIST. PATIENT STATES THAT SHE HAD AN ACUTE ONSET OF HER ASTHMA WITH ASSOCIATED SYMPTOMS OF SOB WITH CHEST TIGHTNESS. Time of 1ST Reevaluation: 11:20 Reevaluation 1ST: Improved Patient Education/Counseling: Diagnosis, Treatment, Need For Follow Up Family Education/Counseling: Diagnosis, Treatment, No Family Present Medical Screening: No EMC Exist At This Time SEPSIS Sepsis Screen Physician Orders Chest Two Views Routine (11/23/24 10:54) Vital Signs Date Time Temp Pulse Resp B/P (MAP) Pulse Ox O2 Delivery O2 Flow Rate FiO2 11/23/24 12:52 105 16 95 Room Air 11/23/24 12:52 98.9 105 16 121/81 (94) 95 98.9 11/23/24 12:52 20 95 Room Air 11/23/24 11:37 18 97 Room Air* 0 21 21 11/23/24 10:54 16 96 Room Air* 0 21 11/23/24 10:40 98.0 104 16 130/89 (103) 96 98.0 Laboratory Tests Test 11/23/24 11:02 White Blood Count 5.9 10^3/uL (4.4-10.8) Medications Medications Dose Ordered Sig/Carlos Enrique Route Start Time Stop Time Status Last Admin Dose Admin Albuterol 5 mg ONCE ONCE NEB 11/23/24 11:30 11/23/24 11:31 DC 11/23/24 11:36 Ceftriaxone Sodium 1,000 mg ONCE ONCE IM 11/23/24 12:00 11/23/24 12:01 DC 11/23/24 12:22 Ipratropium [place] 1 mg ONCE ONCE NEB 11/23/24 11:30 11/23/24 11:31 DC 11/23/24 11:36 Lidocaine HCl 20 ml STK-MED ONCE .ROUTE 11/23/24 12:18 11/23/24 12:15 DC 11/23/24 12:22 Departure 1 Departure Time of Disposition: 12:30 Impression: Primary Impression: Acute asthma exacerbation Qualified Codes: J45.901 - Unspecified asthma with (acute) exacerbation Additional Impressions: Bronchiolitis Acute cystitis Qualified Codes: N30.00 - Acute cystitis without hematuria Disposition: 01 HOME / SELF CARE / HOMELESS Condition: Stable Additional Instructions: FOLLOW-UP WITH PCP IN 1 TO 2 DAYS. TAKE MEDICATIONS PRESCRIBED. RETURN TO ED FOR ANY NEW OR WORSENING SYMPTOMS. e-Prescriptions Promethazine-Dm (Promethazine Dm 6.25-15 mg/5Ml) 1 Lisa Lisa 5 ML PO TID, #150 ML Prov: DANNI TELLEZ 11/23/24 Albuterol Sulfate (Ventolin) 2.5 Mg/0.5 Ml Nb 1 VIAL NEB Q6HR, #120 VIAL 1 Refill Prov: DANNI TELLEZ 11/23/24 Methylprednisolone (Medrol Dosepak) 4 Mg Bright 4 MG PO UD, #21 TAB UAD Prov: DANNI TELLEZ 11/23/24 Levofloxacin Hemihydrate (LEVAQUIN 500 MG) 500 Mg Tab 1 TAB PO DAILY, #7 TAB Prov: DANNI TELLEZ 11/23/24 Discharged With: Self Critical Care Note Critical Care Time?: No Stability Stability form required: No Heart Score Heart Score: Heart Score Response (Comments) Value History N/A 0 EKG N/A 0 Age N/A 0 Risk Factors N/A 0 Troponin N/A 0 Total 0 I personally scribed for DANNI TELLEZ ([email or web address]) on 11/23/24 at 10:57. Electronically submitted by Jean-Pierre Monteiro ([email or web address]). I personally scribed for DANNI TELLEZ ([email or web address]) on 11/23/24 at 12:20. Electronically submitted by Jean-Pierre Monteiro ([email or web address]). I personally scribed for DANNI TELLEZ ([email or web address]) on 11/23/24 at 12:37. Electronically submitted by Jean-Pierre Monteiro ([email or web address]). I personally scribed for DANNI TELLEZ ([email or web address]) on 11/23/24 at 12:39. El ectronically submitted by Jean-Pierre Monteiro ([email or web address]). DANNI TELLEZ Nov 23, 2024 10:57
[2024-11-23 11:14] LABS: Urine Protein, UAD TRACE (Negative)
[2024-11-23 11:25] LABS: Hematocrit 40.4 % (36.0-46.0); Hemoglobin 13.8 g/dL (12.2-16.2); Mean Corpuscular Hemoglobin 30.5 pg (28.0-32.0); Mean Corpuscular Volume 89.5 fL (80.0-100.0); Nucleated Red Blood Cells % 0.1 %
--- NOTE | 2024-11-23 11:31 | DVH ---
EXAM: XY CHEST TWO VIEWS ROUTINE CLINICAL HISTORY: COUGH XONE MONTH COMPARISON: None TECHNIQUE: Frontal and lateral view of the chest was obtained FINDINGS: Lines and Tubes: None Lungs: No focal consolidation. Pleura: No effusion. No pneumothorax. Cardiomediastinal contours: Unremarkable Atherosclerotic vascular calcifications of the thoracic aort a are noted. Bones: No acute osseous abnormality. IMPRESSION: No acute cardiopulmonary disease.
[2024-11-23 11:34] LABS: Chloride 107 mmol/L (98-107)
[2024-11-23 11:35] LABS: Anion Gap 8 (5-15); Carbon Dioxide 30 mmol/L (20-31)
[2024-11-23] MEDS: ALBUTEROL SULF 2.5 MG/0.5ML(0.5%) NEB SOLN NEB ONE (11:36)
[2024-11-23] MEDS: IPRATROPIUM BROM 0.5 MG/2.5ML INH SOL NEB ONE (11:36)
[2024-11-23 11:39] LABS: Calcium 10.7 mg/dL (8.7-10.4); Potassium 3.5 mmol/L (3.5-5.1); Sodium 145 mmol/L (136-145)
[2024-11-23 11:40] LABS: Glucose 95 mg/dL (74-106)
[2024-11-23 11:41] LABS: BUN/Creatinine Ratio 7.9 (10.0-20.0); Blood Urea Nitrogen 6 mg/dL (9-23)
[2024-11-23] MEDS: cefTRIAXone SOD 1,000 MG VL IM ONE (12:22)
[2024-11-23] MEDS: LIDOCAINE 1% HCL (LOCAL ANESTH.) INJ 20ML MDV ONE (12:22)
[2024-11-23] MEDS ORDERED: ALB5IS NEB (12:38)
[2024-11-23] MEDS ORDERED: PROM1SOL4 PO (12:38)
[2024-11-23] MEDS ORDERED: METH4PAK PO (12:38)
[2024-11-23] MEDS ORDERED: LEVO500T91 PO (12:38)
[2024-11-23 12:52] VITALS: BP 121/81; PULSE 105; RESP 16; TEMP 98.9; O2SAT 95
== END 2024-11-23 12:56 | disposition home or self-care (01) ==
LOC: ER 10:38
DX: J45.901 Unspecified asthma with (acute) exacerbation (principal); J21.9 Acute bronchiolitis, unspecified; N30.00 Acute cystitis without hematuria; F17.210 Nicotine dependence, cigarettes, uncomplicated; E78.5 Hyperlipidemia, unspecified; I10 Essential (primary) hypertension; Z90.89 Acquired absence of other organs; Z90.49 Acquired absence of other specified parts of digestive tract; Z98.890 Other specified postprocedural states
CPT/HCPCS: 36415; 71046; 80048; 81001; 85025; 94640; 96372; 99284; J0696; J2003

== ENCOUNTER 2024-12-29 08:54 | Emergency (ER) | payer OTHER, MEDICAID ==
[~2024-12-29] VITALS: Ht 162.6 cm; Wt 64.0 kg
[~2024-12-29 08:54] MED LIST changes: +ALB5IS NEB; +LEVO500T91 PO; +METH4PAK PO; +PROM1SOL4 PO
--- NOTE | 2024-12-29 10:03 | DVH ---
XY R SHOULDER 2+ VIEW XRAY INDICATION: PAIN TECHNICAL DATA: 3 views were obtained of the right shoulder. COMPARISON: None FINDINGS: No acute fracture or dislocation. Joint spaces are maintained. Alignment is preserved. Soft tissue s are unremarkable. IMPRESSION: 1. No acute fracture or dislocation of the right shoulder.
--- NOTE | 2024-12-29 10:24 | ED.PDOC ---
History of Present Illness HPI Comments A 5-YEAR-OLD FEMALE WITH A HISTORY OF ASTHMA, HYPERTENSION, HYPERLIPIDEMIA AND A RIGHT NECK DISKECTOMY OF C4 AND C7, PRESENTS TO THE ED FOR THE C/C OF RIGHT- SIDED NECK PAIN, WITH ASSOCIATED SHOULDER PAIN THAT RADIATES THE RIGHT ELBOW. PATIENT STATES THAT HER SYMPTOMS HAVE BEEN ONSET FOR THE PAST WEEK, AND NOTES THE HER C4 AND C7 SCREW SLIP FORM PRIOR DISKECTOMY, AND KNOWS OF NO ALLEVIATING FACTORS AT THIS TIME. PATIENT DENIES ANY HEADACHE, BLURRY VISION, UP NORMAL MOOD, NAUSEA, VOMITING, DIARRHEA, BLURRY VISION, OR ANY OTHER ASSOCIATED SYMPTOMS, MODIFIERS AT THIS TIME. Chief Complaint: Upper Extremity Time Seen by MD: 10:20 Primary Care Provider: JAGDEEP JAMES Reviewed Notes: Nurses Notes, Medications, Allergies Allergies: Coded Allergies: Erythromycin (Verified Allergy, Unknown, 08/04/24) Latex (Verified Allergy, Unknown, 08/04/24) Midodrine (Verified Allergy, Unknown, 08/04/24) Quetiapine (Verified Allergy, Unknown, 08/04/24) Uncoded Allergies: BEE STINGS (Allergy, Unknown, 08/04/24) DARVOCET (Allergy, Unknown, 08/04/24) DOXYCLYCINE (Allergy, Unknown, 06/27/24) SULFA (Allergy, Unknown, 06/27/24) Home Meds Active Scripts Prednisone (Prednisone) 20 Mg Tab, 40 MG PO DAILY, #20 TAB Prov:DANNI TELLEZ 12/29/24 Hydrocodone-Acetaminophen (Hydrocodone Bitartrate/AC 5-325 mg) 1 Tab Tab, 1 TAB PO BID, #14 TAB Prov:DANNI TELLEZ 12/29/24 Promethazine-Dm (Promethazine Dm 6.25-15 mg/5Ml) 1 Lisa Lisa, 5 ML PO TID, #150 ML Prov:DANNI TELLEZ 11/23/24 Albuterol Sulfate (Ventolin) 2.5 Mg/0.5 Ml Nb, 1 VIAL NEB Q6HR, #120 VIAL 1 Refill Prov:DANNI TELLEZ 11/23/24 Methylprednisolone (Medrol Dosepak) 4 Mg Bright, 4 MG PO UD, #21 TAB UAD Prov:DANNI TELLEZ 11/23/24 Levofloxacin Hemihydrate (LEVAQUIN 500 MG) 500 Mg Tab, 1 TAB PO DAILY, #7 TAB Prov:DANNI TELLEZ 11/23/24 Lidocaine (LIDODERM 5% TOPICAL PATCH) 1 Patch Ph, 1 PATCH TOP DAILY for 30 Days, #30 PATCH 0 Refills Prov:EDILMABELKIS MADDEN EIRC 09/25/24 Hydrocodone-Acetaminophen (Hydrocodone Bitartrate/AC 5-325 mg) 1 Tab Tab, 1 TAB PO Q6HP PRN for 2 Days, #8 TAB 0 Refills Prov:KERRI FRANCEJazmyn Everett NP 09/25/24 Methocarbamol (Methocarbamol) 500 Mg Tab, 500 MG PO Q8HP PRN for 10 Days, #30 TAB 0 Refills Prov:EDILMAKERRI MADDENJazmyn Everett NP 09/25/24 Methocarbamol (Methocarbamol) 750 Mg Tab, 750 MG PO BID, #20 TAB Prov:DANNI TELLEZ 08/04/24 Tramadol Hcl (Tramadol Hcl) 50 Mg Tab, 50 MG PO BID, #20 TAB Prov:DANNI TELLEZ 08/04/24 Acetaminophen (Acetaminophen) 500 Mg Tab, 500 MG PO Q4HPRN, #30 TAB 0 Refills Prov:WING VELARDE 06/27/24 Amoxicillin & Pot Clavulanate (Amoxicillin/Potassium Cla) 875 Mg Tab, 1 TAB PO BID for 7 Days, #14 TAB 0 Refills Prov:WING VELARDE 06/27/24 Information Source: Patient Mode of Arrival: Ambulatory Severity: Moderate Timing: Weeks Duration: Intermittent Prehospital treatment: None Medication Refill: For: Other (NECK PAIN TO RIGHT SHOULDER ) Past Medical History PAST MEDICAL HISTORY: Asthma, High Lipids, HTN, Thyroid Past Medical History (Other): CHRONIC NECK PAIN Surgical History: Cholecystectomy, Hernia Repair, Tonsillectomy ENVIRONMENTAL DIRECTOR History: No Pertinent ENVIRONMENTAL DIRECTOR History Family History Family History: Reviewed,noncontributory to illness Social History Smoker: Cigarettes Alcohol: Denies ETOH Use Drugs: Denies Drug Use Lives In: Home Constitutional: denies: chills, diaphoresis, fatigue, fever, malaise, sweats, weakness, others EENTM: denies: blurred vision, double vision, ear bleeding, ear discharge, ear drainage, ear pain, ear ringing, eye pain, eye redness, hearing loss, mouth pain, mouth swelling, nasal discharge, nose bleeding, nose congestion, nose pain, photophobia, tearing, throat pain, throat swelling, voice changes, others Respiratory: denies: cough, hemoptysis, orthopnea, SOB at rest, shortness of breath, SOB with excertion, stridor, wheezing, others Cardiovascular: denies: chest pain, dizzy spells, diaphoresis, Dyspnea on exertion, edema, irregular heart beat, left arm pain, lightheadedness, palpitations, PND, syncope, others Gastrointestinal: denies: abdomen distended, abdominal pain, blood streaked bowels, constipated, diarrhea, dysphagia, difficulty swallowing, hematemesis, melena, nausea, poor appetite, poor fluid intake, rectal bleeding, rectal pain, vomiting, others Genitourinary: denies: abnormal vagina bleeding, burning, dyspareunia, dysuria, flank pain, frequency, hematuria, incontinence, pain, , vagina discharge, urgency, others Neurological: denies: dizziness, fainting, headache, left sided numbness, left sided weakness, numbness, paresthesia, pre-existing deficit, right sided numbness, right sided weakness, seizure, speech problems, tingling, tremors, weakness, others Musculoskeletal: reports: muscle pain, neck pain; denies: back pain, gout, joint pain, joint swelling, muscle stiffness, others Integumetry: denies: bruises, change in color, change in hair/nails, dryness, laceration, lesions, lumps, rash, wounds, others Allergic/Immunocompromised: denies: Difficulty Healing, Frequent Infections, Hives, Itching, others Hematologic/Lymphatic: denies: anemia, blood clots, easy bleeding, easy bruising, swollen glands, others Endocrine: denies: excessive hunger, excessive sweating, excessive thirst, excessive urination, flushing, intolerance to cold, intolerance to heat, unexplained weight gain, unexplained weight loss, others Psychiatric: denies: anxiety, bipolar disorder, depression, hopeless, panic disorder, schizophrenia, sleepless, suicidal, others All Other Systems: Reviewed and Negative Physical Exam General Appearance: No Apparent Distress, Normal HEENT: Normal ENT Inspection, PERRL/EOMI, Pharynx Normal, TMs Normal Neck: Full Range of Motion, Normal Inspection, Supple, Tender Lateral (TENDERNESS AND MUSCLE SPASM ON POSTERIOR NECK, NO BONY TENDERNESS AND SWELLING. ) Respiratory: Chest Non-Tender, Lungs Clear, No Accessory Muscle Use, No Respiratory Distress, Normal Breath Sounds Cardiovascular: No Edema, No JVD, No Murmur, No Gallop, Normal Peripheral Pulses, Regular Rate/Rhythm Breast Exam: Deferred Gastrointestinal: No Organomegaly, Non Tender, No Pulsatile Mass, Normal Bowel Sounds, Soft Genitalia: Deferred Pelvic: Deferred Rectal: Deferred Extremities: No calf tenderness, Normal capillary refill, Normal inspection, Normal range of motion, Non-tender, No pedal edema, Other (NORMAL RIGHT SHOULDER WITH NORMAL ROM. ) Musculoskeletal : Apperance: Normal Neurologic: Alert, filters assembler II-XII nml as Tested, No Motor Deficits, Normal Affect, Normal Mood, No Sensory Deficits Cerebellar Function: Normal Reflexes: Normal Skin: Dry, Normal Color, Warm Peripheral Pulses: 2+ carotid (R), 2+ carotid (L) Lymphatic: No Adenopathy Was a procedure done? Was a procedure done?: No Differential Dx Considerations may include: CHRONIC NECK PAIN EXACERBATION X-Ray, Labs, Meds, VS Vital Signs Date Time Temp Pulse Resp B/P (MAP) Pulse Ox O2 Delivery O2 Flow Rate FiO2 12/29/24 10:46 80 14 97 Room Air 12/29/24 10:46 98.0 80 14 133/91 (105) 97 98.0 12/29/24 08:55 98.2 97 18 146/100 100 98.2 PATIENT: RAMAN REICH ACCT: [id number] UNIT: [id number] : 1965 LOC: ER ROOM / BED: / AGE / SEX: 59 / F ADM STATUS: REG ER SERVICE ORDERING PHYSICIAN: DANNI TELLEZ PROCEDURE(s): RSHD2 - R SHOULDER 2+ VIEW XRAY REASON: PAIN ORDER NUMBER(s): [id number], ACCESSION NUMBER(s): [id number] XY R SHOULDER 2+ VIEW XRAY INDICATION: PAIN TECHNICAL DATA: 3 views were obtained of the right shoulder. COMPARISON: None FINDINGS: No acute fracture or dislocation. Joint spaces are maintained. Alignment is pr eserved. Soft tissues are unremarkable. IMPRESSION: 1. No acute fracture or dislocation of the right shoulder. ENT: RAMAN REICH ACCT: [id number] UNIT: [id number] : 1965 LOC: ER ROOM / BED: / AGE / SEX: 59 / F ADM STATUS: REG ER SERVICE 1011 ORDERING PHYSICIAN: DANNI TELLEZ PROCEDURE(s): CERV2 - CERVICAL SPINE 3V REASON: NECK PAIN TO RIGHT SHOULDER ORDER NUMBER(s): [id number], ACCESSION NUMBER(s): [id number] INDICATION: NECK PAIN TO RIGHT SHOULDER COMPARISON: XY CERVICAL SPINE 3V on DOS: 08/04/24, CT NECK WITHOUT CONTRAST on DOS: 06/27/24 TECHNIQUE: 3 views of the cervical spine were obtained. FINDINGS: The cervical vertebral alignment is normal. The predental space is normal. Anterior cervical hardware at C4-C5 through C6-C7 causing moderate to severe neural foraminal and spinal canal stenosis No acute fracture, vertebral compression deformity or aggressive osseous lesions. The imaged lung apices are unremarkable. IMPRESSION: No acute fracture. X-Ray, Labs, Meds, VS Comment EXTERNAL MEDICAL RECORDS REVIEWED: [NONE] INDEPENDENT HISTORIANS: [NONE] SOCIAL DETERMINANTS OF HEALTH: [NONE] LABS ORDERED: NONE REVIEWED AND INTERPRETED RESULTS: NONE IMAGING ORDERED: RIGHT SHOULDER X-RAY/C-SPINE X-RAY ORDERED AND PENDING.INTERPRETED BY ME. NO ACUTE FINDINGS. NO FRACTURES OR DISLOCATION. PENDING RADIOLOGIST REPORT. TREATMENTS ORDERED: PROCEDURES PERFORMED: NONE CRITICAL CARE TIME: NONE I HAVE DISCUSSED THE PATIENT WITH THE ATTENDING PHYSICIAN [CHUCK] AND HE AGREES WITH THE PATIENT'S PLAN OF CARE AND DISPOSITION. BASED ON HISTORY OF PRESENT ILLNESS, AND PHYSICAL EXAM, PATIENT WILL BE DISCHARGED HOME. DISCUSSED PLAN FOR DISCHARGE HOME WITH RX [NORCO, PREDNISONE]. MEDICATION WARNINGS GIVEN. SHARED DECISION MAKING: DISCUSSED WITH PATIENT THAT THEIR WORKUP WAS NORMAL. PATIENT INSTRUCTED TO FOLLOW UP WITH PRIMARY CARE PROVIDER IN 1-2 DAYS FOR RE- EVALUATION OF SYMPTOMS. PATIENT VERBALIZES UNDERSTANDING TO RETURN TO ED FOR NEW OR WORSENING SYMPTOMS OR IF FOLLOW UP WITH PCP CANNOT BE OBTAINED. PATIENT FEELS COMFORTABLE GOING HOME AT THIS TIME. ALL QUESTIONS ADDRESSED AT TIME OF DISCHARGE. Time of 1ST Reevaluation: 10:54 Reevaluation 1ST: Improved Patient Education/Counseling: Diagnosis, Treatment, Need For Follow Up Family Education/Counseling: Diagnosis, Treatment, No Family Present Medical Screening: No EMC Exist At This Time SEPSIS Sepsis Screen Date sepsis recognized/suspect: Dec 29, 2024 Time Sepsis recognized/suspect: 0857 Recent Procedure: No On Antibiotic Therapy: No Respiratory Rate >20: No Heart Rate >90: Yes Temp<36 C (96.8 F) or >38.3 C: No SBP <90 or MAP <65 mmHG: No New Acute Mental Status Change: No Is the patient on CPAP, BIPAP,: No Physician Orders R Shoulder 2+ View Xray (12/29/24 09:24) Cervical Spine 3v (12/29/24 10:11) Vital Signs Date Time Temp Pulse Resp B/P (MAP) Pulse Ox O2 Delivery O2 Flow Rate FiO2 12/29/24 10:46 80 14 97 Room Air 12/29/24 10:46 98.0 80 14 133/91 (105) 97 98.0 12/29/24 08:55 98.2 97 18 146/100 100 98.2 Departure 1 Departure Time of Disposition: 10:55 Impression: Primary Impression: DDD (degenerative disc disease), cervical Additional Impressions: Cervical radiculopathy Exacerbation of chronic back pain Disposition: 01 HOME / SELF CARE / HOMELESS Condition: Stable Additional Instructions: FOLLOW-UP WITH PCP IN 1 TO 2 DAYS. TAKE MEDICATIONS PRESCRIBED. RETURN TO ED FOR ANY NEW OR WORSENING SYMPTOMS. e-Prescriptions Prednisone (Prednisone) 20 Mg Tab 40 MG PO DAILY, #20 TAB Prov: DANNI TELLEZ 12/29/24 Hydrocodone-Acetaminophen (Hydrocodone Bitartrate/AC 5-325 mg) 1 Tab Tab 1 TAB PO BID, #14 TAB Prov: DANNI TELLEZ 12/29/24 Discharged With: Self Critical Care Note Critical Care Time?: No Stability Stability form required: No Heart Score Heart Score: Heart Score Response (Comments) Value History N/A 0 EKG N/A 0 Age N/A 0 Risk Factors N/A 0 Troponin N/A 0 Total 0 I personally scribed for DANNI TELLEZ ([email or web address]) on 12/29/24 at 10:24. Electronically submitted by Dedrcik Houston ([email or web address]). I personally scribed for DANNI TELLEZ ([email or web address]) on 12/29/24 at 10:26. Electronically submitted by Dedrick Houston ([email or web address]). I personally scribed for DANNI TELLEZ ([email or web address]) on 12/29/24 at 10:39. Electronically submitted by Dedrick Houston ([email or web address]). I personally scribed for DANNI TELLEZ ([email or web address]) on 12/29/24 at 10:46. Electronically submitted by Dedrick Houston ([email or web address]). DANNI TELLEZ Dec 29, 2024 10:24
[2024-12-29] MEDS ORDERED: PRED20TA2 PO (10:37)
[2024-12-29] MEDS ORDERED: HYDR-4902 PO (10:37)
--- NOTE | 2024-12-29 10:40 | DVH ---
INDICATION: NECK PAIN TO RIGHT SHOULDER COMPARISON: XY CERVICAL SPINE 3V on DOS: 08/04/24, CT NECK WITHOUT CONTRAST on DOS: 06/27/24 TECHNIQUE: 3 views of the cervical spine were obtained. FINDINGS: The cervical vertebral alignment is normal. The predental space is normal. Anterior cervical hardware at C4-C5 through C6-C7 causing moderate to severe neural foraminal and spi nal canal stenosis No acute fracture, vertebral compression deformity or aggressive osseous lesions. The imaged lung apices are unremarkable. IMPRESSION: No acute fracture.
[2024-12-29 10:46] VITALS: BP 133/91; PULSE 80; RESP 14; TEMP 98; O2SAT 97
== END 2024-12-29 10:51 | disposition home or self-care (01) ==
LOC: ER 08:54
DX: M50.121 Cervical disc disorder at C4-C5 level with radiculopathy (principal); M50.123 Cervical disc disorder at C6-C7 level with radiculopathy; G89.29 Other chronic pain; F17.210 Nicotine dependence, cigarettes, uncomplicated; E78.5 Hyperlipidemia, unspecified; I10 Essential (primary) hypertension; J45.909 Unspecified asthma, uncomplicated; Z79.899 Other long term (current) drug therapy; Z98.890 Other specified postprocedural states; Z91.030 Bee allergy status; Z90.89 Acquired absence of other organs; Z88.2 Allergy status to sulfonamides; Z88.1 Allergy status to other antibiotic agents; Z79.52 Long term (current) use of systemic steroids; Z90.49 Acquired absence of other specified parts of digestive tract
CPT/HCPCS: 72040; 73030

== ENCOUNTER 2025-02-13 00:19 | Emergency (ER) | payer OTHER, MEDICAID ==
[~2025-02-13] VITALS: Ht 162.6 cm; Wt 68.0 kg
[~2025-02-13 00:19] MED LIST changes: +PRED20TA2 PO
[2025-02-13] MEDS ORDERED: TRAZ1TAB12 PO (01:25)
--- NOTE | 2025-02-13 01:30 | ED.PDOC ---
History of Present Illness HPI Comments 59-year-old female came to ER for neck pain. Patient has history of goiter, but that has not seen her infant nanny, or has taken her thyroid medications for years. Patient coming in for multiple complaints, throat pain and swelling, voice changes, shortness a breath, difficulty swallowing, and bulging eyes among others. States she feels like there are nodules on her neck and bilateral armpits. Patient appears very anxious at this time of care Chief Complaint: Neck Pain Time Seen by MD: 01:30 Primary Care Provider: JAGDEEP JAMES Reviewed Notes: Nurses Notes Allergies: Coded Allergies: Erythromycin (Verified Allergy, Unknown, 08/04/24) Latex (Verified Allergy, Unknown, 08/04/24) Midodrine (Verified Allergy, Unknown, 08/04/24) Quetiapine (Verified Allergy, Unknown, 08/04/24) Uncoded Allergies: BEE STINGS (Allergy, Unknown, 08/04/24) DARVOCET (Allergy, Unknown, 08/04/24) DOXYCLYCINE (Allergy, Unknown, 06/27/24) SULFA (Allergy, Unknown, 06/27/24) Home Meds Active Scripts Trazodone Hcl (Trazodone Hcl) 150 Mg Tab, 1 TAB PO QPM for 90 Days, #90 TAB 3 Refills Prov:PERRY ARSHAD MD 02/13/25 Prednisone (Prednisone) 20 Mg Tab, 40 MG PO DAILY, #20 TAB Prov:DANNI TELLEZ 12/29/24 Hydrocodone-Acetaminophen (Hydrocodone Bitartrate/AC 5-325 mg) 1 Tab Tab, 1 TAB PO BID, #14 TAB Prov:DANNI TELLEZ 12/29/24 Promethazine-Dm (Promethazine Dm 6.25-15 mg/5Ml) 1 Lisa Lisa, 5 ML PO TID, #150 ML Prov:DANNI TELLEZ 11/23/24 Albuterol Sulfate (Ventolin) 2.5 Mg/0.5 Ml Nb, 1 VIAL NEB Q6HR, #120 VIAL 1 Refill Prov:DANNI TELLEZ 11/23/24 Methylprednisolone (Medrol Dosepak) 4 Mg Bright, 4 MG PO UD, #21 TAB UAD Prov:DANNI TELLEZ 11/23/24 Levofloxacin Hemihydrate (LEVAQUIN 500 MG) 500 Mg Tab, 1 TAB PO DAILY, #7 TAB Prov:DANNI TELLEZ 11/23/24 Lidocaine (LIDODERM 5% TOPICAL PATCH) 1 Patch Ph, 1 PATCH TOP DAILY for 30 Days, #30 PATCH 0 Refills Prov:BELKIS FRANCE NP 09/25/24 Hydrocodone-Acetaminophen (Hydrocodone Bitartrate/AC 5-325 mg) 1 Tab Tab, 1 TAB PO Q6HP PRN for 2 Days, #8 TAB 0 Refills Prov:BELKIS FRANCE NP 09/25/24 Methocarbamol (Methocarbamol) 500 Mg Tab, 500 MG PO Q8HP PRN for 10 Days, #30 TAB 0 Refills Prov:BELKIS FRANCE NP 09/25/24 Methocarbamol (Methocarbamol) 750 Mg Tab, 750 MG PO BID, #20 TAB Prov:DANNI TELLEZ 08/04/24 Tramadol Hcl (Tramadol Hcl) 50 Mg Tab, 50 MG PO BID, #20 TAB Prov:DANNI TELLEZ 08/04/24 Acetaminophen (Acetaminophen) 500 Mg Tab, 500 MG PO Q4HPRN, #30 TAB 0 Refills Prov:WING VELARDE 06/27/24 Amoxicillin & Pot Clavulanate (Amoxicillin/Potassium Cla) 875 Mg Tab, 1 TAB PO BID for 7 Days, #14 TAB 0 Refills Prov:WING VELARDE 06/27/24 Information Source: Patient Mode of Arrival: Ambulatory Severity: Moderate Timing: Months Duration: Intermittent Past Medical History PAST MEDICAL HISTORY: Asthma, High Lipids, HTN, Thyroid Surgical History: Cholecystectomy, Hernia Repair, Tonsillectomy PIGMENT MAKING SUPERVISOR History: No Pertinent PIGMENT MAKING SUPERVISOR History Family History Family History: Reviewed,noncontributory to illness Social History Smoker: Cigarettes Alcohol: Denies ETOH Use Drugs: Denies Drug Use Lives In: Home Constitutional: reports: malaise, weakness; denies: chills, diaphoresis, fatigue, fever, sweats, others EENTM: reports: throat pain, throat swelling, voice changes; denies: blurred vision, double vision, ear bleeding, ear discharge, ear drainage, ear pain, ear ringing, eye pain, eye redness, hearing loss, mouth pain, mouth swelling, nasal discharge, nose bleeding, nose congestion, nose pain, photophobia, tearing, others Respiratory: reports: orthopnea, SOB at rest, shortness of breath; denies: cough, hemoptysis, SOB with excertion, stridor, wheezing, others Cardiovascular: denies: chest pain, dizzy spells, diaphoresis, Dyspnea on exertion, edema, irregular heart beat, left arm pain, lightheadedness, palpitations, PND, syncope, others Gastrointestinal: denies: abdomen distended, abdominal pain, blood streaked bowels, constipated, diarrhea, dysphagia, difficulty swallowing, hematemesis, melena, nausea, poor appetite, poor fluid intake, rectal bleeding, rectal pain, vomiting, others Genitourinary: denies: abnormal vagina bleeding, burning, dyspareunia, dysuria, flank pain, frequency, hematuria, incontinence, pain, , vagina discharge, urgency, others Neurological: denies: dizziness, fainting, headache, left sided numbness, left sided weakness, numbness, paresthesia, pre-existing deficit, right sided numbness, right sided weakness, seizure, speech problems, tingling, tremors, weakness, others Musculoskeletal: denies: back pain, gout, joint pain, joint swelling, muscle pain, muscle stiffness, neck pain, others Integumetry: denies: bruises, change in color, change in hair/nails, dryness, laceration, lesions, lumps, rash, wounds, others Allergic/Immunocompromised: denies: Difficulty Healing, Frequent Infections, Hives, Itching, others Hematologic/Lymphatic: denies: anemia, blood clots, easy bleeding, easy bruising, swollen glands, others Endocrine: denies: excessive hunger, excessive sweating, excessive thirst, excessive urination, flushing, intolerance to cold, intolerance to heat, unexpl ained weight gain, unexplained weight loss, others Psychiatric: denies: anxiety, bipolar disorder, depression, hopeless, panic disorder, schizophrenia, sleepless, suicidal, others Physical Exam General Appearance: No Apparent Distress, Normal HEENT: Normal ENT Inspection, Pharynx Normal, TMs Normal Neck: Full Range of Motion, Non-Tender, Normal, Normal Inspection Respiratory: Chest Non-Tender, Lungs Clear, No Accessory Muscle Use, No Respiratory Distress, Normal Breath Sounds Cardiovascular: No Edema, No JVD, No Murmur, No Gallop, Normal Peripheral Pulses, Regular Rate/Rhythm Breast Exam: Deferred Gastrointestinal: No Organomegaly, Non Tender, No Pulsatile Mass, Normal Bowel Sounds, Soft Genitalia: Deferred Pelvic: Deferred Rectal: Deferred Extremities: No calf tenderness, Normal capillary refill, Normal inspection, Normal range of motion, Non-tender, No pedal edema Musculoskeletal : Apperance: Normal Neurologic: Alert, motor transport inspector II-XII nml as Tested, No Motor Deficits, Normal Affect, Normal Mood, No Sensory Deficits Cerebellar Function: Normal Reflexes: Normal Skin: Dry, Normal Color, Warm Lymphatic: No Adenopathy Was a procedure done? Was a procedure done?: No Differential Dx Considerations may include: Anemia, electrolyte imbalance, thyroid disease, Graves disease, anxiety X-Ray, Labs, Meds, VS Vital Signs Date Time Temp Pulse Resp B/P (MAP) Pulse Ox O2 Delivery O2 Flow Rate FiO2 02/13/25 03:50 Room Air* 0 21 02/13/25 03:40 97.9 91 18 130/84 (99) 98 97.9 02/13/25 00:21 98.3 98 18 138/83 96 98.3 Time of 1ST Reevaluation: 01:26 Reevaluation 1ST: Unchanged Patient Education/Counseling: Diagnosis, Treatment Family Education/Counseling: No Family Present SEPSIS Sepsis Screen Date sepsis recognized/suspect: Feb 13, 2025 Time Sepsis recognized/suspect: 0022 Recent Procedure: No On Antibiotic Therapy: No Respiratory Rate >20: No Heart Rate >90: Yes Temp<36 C (96.8 F) or >38.3 C: No SBP <90 or MAP <65 mmHG: No New Acute Mental Status Change: No Is the patient on CPAP, BIPAP,: No Vital Signs Date Time Temp Pulse Resp B/P (MAP) Pulse Ox O2 Delivery O2 Flow Rate FiO2 02/13/25 03:50 Room Air* 0 21 02/13/25 03:40 97.9 91 18 130/84 (99) 98 97.9 02/13/25 00:21 98.3 98 18 138/83 96 98.3 Departure 1 Departure Time of Disposition: 03:00 Impression: Primary Impression: Goiter Disposition: 01 HOME / SELF CARE / HOMELESS Condition: Stable e-Prescriptions Trazodone Hcl (Trazodone Hcl) 150 Mg Tab 1 TAB PO QPM for 90 Days, #90 TAB 3 Refills Prov: PERRY ARSHAD MD 02/13/25 Discharged With: Self Critical Care Note Critical Care Time?: No Stability Stability form required: No Heart Score Heart Score: Heart Score Response (Comments) Value History N/A 0 EKG N/A 0 Age N/A 0 Risk Factors N/A 0 Troponin N/A 0 Total 0 I personally scribed for PERRY ARSHAD MD ([email or web address]) on 02/13/25 at 01:30. Electronically submitted by Shai Hernandez ([email or web address]). PERRY ARSHAD MD Feb 13, 2025 01:30
[2025-02-13 03:40] VITALS: BP 130/84; PULSE 91; RESP 18; TEMP 97.9; O2SAT 98
== END 2025-02-13 03:47 | disposition home or self-care (01) ==
LOC: ER 00:19
DX: E04.9 Nontoxic goiter, unspecified (principal); I10 Essential (primary) hypertension; E78.5 Hyperlipidemia, unspecified; E03.9 Hypothyroidism, unspecified; J45.909 Unspecified asthma, uncomplicated; F17.210 Nicotine dependence, cigarettes, uncomplicated; Z90.49 Acquired absence of other specified parts of digestive tract; Z90.89 Acquired absence of other organs; Z98.890 Other specified postprocedural states; Z88.1 Allergy status to other antibiotic agents; Z88.2 Allergy status to sulfonamides; Z91.030 Bee allergy status; Z91.040 Latex allergy status

== ENCOUNTER 2025-02-28 14:27 | Emergency (ER) | payer OTHER, MEDICAID ==
[~2025-02-28] VITALS: Ht 162.6 cm; Wt 67.3 kg
[~2025-02-28 14:27] MED LIST changes: +TRAZ1TAB12 PO
[2025-02-28 15:09] LABS: Hematocrit 40.0 % (36.0-46.0); Hemoglobin 13.5 g/dL (12.2-16.2); Mean Corpuscular Hemoglobin 30.6 pg (28.0-32.0); Mean Corpuscular Volume 90.9 fL (80.0-100.0); Nucleated Red Blood Cells % 0.1 %
[2025-02-28 15:10] LABS: Chloride 107 mmol/L (98-107); Sodium 142 mmol/L (136-145)
[2025-02-28 15:11] LABS: Anion Gap 7 (5-15); Calcium 9.4 mg/dL (8.7-10.4); Carbon Dioxide 28 mmol/L (20-31)
[2025-02-28 15:16] LABS: BUN/Creatinine Ratio 6.6 (10.0-20.0); Glucose 100 mg/dL (74-106)
[2025-02-28 15:19] LABS: Blood Urea Nitrogen 6 mg/dL (9-23); Potassium 3.0 mmol/L (3.5-5.1)
--- NOTE | 2025-02-28 15:49 | ED.PDOC ---
History of Present Illness HPI Comments See year old female presents to the ER with a prior medical history of asthma, high lipids, hypertension, thyroid: Surgical history of cholecystectomy, hernia repair, tonsillectomy and the chief complaint of the chest pain. Patient reports on sitting her bed eating food which she had a sudden onset of chest pain associated with palpitations and shortness a breath. Patient notes that the chest pain radiates up the neck to the jaw and down the left shoulder. Patient states that she has had similar symptoms in the past which discovered that she has plaque buildup in one of her arteries. Denies any other symptoms at this time. Denies chills, fever, N/V/D. No other associated symptoms, modifiers, recent injuries or sick contacts present at this time. Chief Complaint: Chest Pain Time Seen by MD: 15:45 Primary Care Provider: JAGDEEP JAMES Reviewed Notes: Nurses Notes, Medications, Allergies Allergies: Coded Allergies: Erythromycin (Verified Allergy, Unknown, 08/04/24) Latex (Verified Allergy, Unknown, 08/04/24) Midodrine (Verified Allergy, Unknown, 08/04/24) Quetiapine (Verified Allergy, Unknown, 08/04/24) Uncoded Allergies: BEE STINGS (Allergy, Unknown, 08/04/24) DARVOCET (Allergy, Unknown, 08/04/24) DOXYCLYCINE (Allergy, Unknown, 06/27/24) SULFA (Allergy, Unknown, 06/27/24) Home Meds Active Scripts Trazodone Hcl (Trazodone Hcl) 150 Mg Tab, 1 TAB PO QPM for 90 Days, #90 TAB 3 Re fills Prov:PERRY ARSHAD MD 02/13/25 Prednisone (Prednisone) 20 Mg Tab, 40 MG PO DAILY, #20 TAB Prov:DANNI TELLEZ 12/29/24 Hydrocodone-Acetaminophen (Hydrocodone Bitartrate/AC 5-325 mg) 1 Tab Tab, 1 TAB PO BID, #14 TAB Prov:DANNI TELLEZ 12/29/24 Promethazine-Dm (Promethazine Dm 6.25-15 mg/5Ml) 1 Lisa Lisa, 5 ML PO TID, #150 ML Prov:DANNI TELLEZ 11/23/24 Albuterol Sulfate (Ventolin) 2.5 Mg/0.5 Ml Nb, 1 VIAL NEB Q6HR, #120 VIAL 1 Refill Prov:DANNI TELLEZ 11/23/24 Methylprednisolone (Medrol Dosepak) 4 Mg Bright, 4 MG PO UD, #21 TAB UAD Prov:DANNI TELLEZ 11/23/24 Levofloxacin Hemihydrate (LEVAQUIN 500 MG) 500 Mg Tab, 1 TAB PO DAILY, #7 TAB Prov:DANNI TELLEZ 11/23/24 Lidocaine (LIDODERM 5% TOPICAL PATCH) 1 Patch Ph, 1 PATCH TOP DAILY for 30 Days, #30 PATCH 0 Refills Prov:BELKIS FRANCE GLOST KILN OPERATOR 09/25/24 Hydrocodone-Acetaminophen (Hydrocodone Bitartrate/AC 5-325 mg) 1 Tab Tab, 1 TAB PO Q6HP PRN for 2 Days, #8 TAB 0 Refills Prov:BELKIS FRANCE GLOST KILN OPERATOR 09/25/24 Methocarbamol (Methocarbamol) 500 Mg Tab, 500 MG PO Q8HP PRN for 10 Days, #30 TAB 0 Refills Prov:BELKIS FRANCE GLOST KILN OPERATOR 09/25/24 Methocarbamol (Methocarbamol) 750 Mg Tab, 750 MG PO BID, #20 TAB Prov:DANNI TELLEZ 08/04/24 Tramadol Hcl (Tramadol Hcl) 50 Mg Tab, 50 MG PO BID, #20 TAB Prov:DANNI TELLEZ 08/04/24 Acetaminophen (Acetaminophen) 500 Mg Tab, 500 MG PO Q4HPRN, #30 TAB 0 Refills Prov:WING VELARDE 06/27/24 Amoxicillin & Pot Clavulanate (Amoxicillin/Potassium Cla) 875 Mg Tab, 1 TAB PO BID for 7 Days, #14 TAB 0 Refills Prov:WING VELARDE 06/27/24 Information Source: Patient Mode of Arrival: Ambulatory Severity: Moderate Timing: Minutes Duration: Since onset, Minutes Prehospital treatment: None Past Medical History PAST MEDICAL HISTORY: Asthma, High Lipids, HTN, Thyroid Surgical History: Cholecystectomy, Hernia Repair, Tonsillectomy JACQUARD FIXER History: No Pertinent JACQUARD FIXER History Family History Family History: Reviewed,noncontributory to illness, Unknown Social History Smoker: Cigarettes Alcohol: Denies ETOH Use Drugs: Denies Drug Use Lives In: Home Constitutional: denies: chills, diaphoresis, fatigue, fever, malaise, sweats, weakness, others EENTM: denies: blurred vision, double vision, ear bleeding, ear discharge, ear drainage, ear pain, ear ringing, eye pain, eye redness, hearing loss, mouth pain, mouth swelling, nasal discharge, nose bleeding, nose congestion, nose pain, photophobia, tearing, throat pain, throat swelling, voice changes, others Respiratory: reports: shortness of breath; denies: cough, hemoptysis, orthopnea, SOB at rest, SOB with excertion, stridor, wheezing, others Cardiovascular: reports: chest pain, left arm pain, palpitations; denies: dizzy spells, diaphoresis, Dyspnea on exertion, edema, irregular heart beat, lightheadedness, PND, syncope, others Gastrointestinal: denies: abdomen distended, abdominal pain, blood streaked bowels, constipated, diarrhea, dysphagia, difficulty swallowing, hematemesis, melena, nausea, poor appetite, poor fluid intake, rectal bleeding, rectal pain, vomiting, others Genitourinary: denies: abnormal vagina bleeding, burning, dyspareunia, dysuria, flank pain, frequency, hematuria, incontinence, pain, , vagina discharge, urgency, others Neurological: denies: dizziness, fainting, headache, left sided numbness, left sided weakness, numbness, paresthesia, pre-existing deficit, right sided numbness, right sided weakness, seizure, speech problems, tingling, tremors, weakness, others Musculoskeletal: denies: back pain, gout, joint pain, joint swelling, muscle pain, muscle stiffness, neck pain, others Integumetry: denies: bruises, change in color, change in hair/nails, dryness, laceration, lesions, lumps, rash, wounds, others Allergic/Immunocompromised: denies: Difficulty Healing, Frequent Infections, Hives, Itching, others Hematologic/Lymphatic: denies: anemia, blood clots, easy bleeding, easy bruising, swollen glands, others Endocrine: denies: excessive hunger, excessive sweating, excessive thirst, excessive urination, flushing, intolerance to cold, intolerance to heat, unexplained weight gain, unexplained weight loss, others Psychiatric: denies: anxiety, bipolar disorder, depression, hopeless, panic disorder, schizophrenia, sleepless, suicidal, others All Other Systems: Reviewed and Negative Physical Exam General Appearance: Moderate Distress, Normal HEENT: Normal ENT Inspection, Pharynx Normal, TMs Normal Neck: Full Range of Motion, Non-Tender, Normal, Normal Inspection Respiratory: Chest Non-Tender, Lungs Clear, No Accessory Muscle Use, No Respiratory Distress, Normal Breath Sounds Cardiovascular: No Edema, No JVD, No Murmur, No Gallop, Normal Peripheral Pulses, Regular Rate/Rhythm Breast Exam: Deferred Gastrointestinal: No Organomegaly, Non Tender, No Pulsatile Mass, Normal Bowel Sounds, Soft Genitalia: Deferred Pelvic: Deferred Rectal: Deferred Extremities: No calf tenderness, Normal capillary refill, Normal inspection, Normal range of motion, Non-tender, No pedal edema Musculoskeletal : Apperance: Normal Neurologic: Alert, drapery inspector II-XII nml as Tested, No Motor Deficits, Normal Affect, Normal Mood, No Sensory Deficits Cerebellar Function: Normal Reflexes: Normal Skin: Dry, Normal Color, Warm Peripheral Pulses: 3+ Radial (R), 3+ Radial (L) Lymphatic: No Adenopathy Was a procedure done? Was a procedure done?: No EKG EKG : Pulse Rate (adult): 94 [place]: Normal Cardiac Rhythm: NSR Block: None Hypertrophy: None ST: Normal Differential Dx Considerations may include: Anemia Electrolyte imbalance X-Ray, Labs, Meds, VS Vital Signs Date Time Temp Pulse Resp B/P (MAP) Pulse Ox O2 Delivery O2 Flow Rate FiO2 02/28/25 15:49 94 02/28/25 14:40 94 02/28/25 14:29 98.9 104 18 129/77 95 98.9 Lab Test 02/28/25 15:50 02/28/25 14:50 Range/Units Troponin I High Sensitivity 4 5 </=34 ng/L White Blood Count 5.0 4.4-10.8 10^3/uL Red Blood Count 4.40 4.0-5.20 10^6/uL Hemoglobin 13.5 12.2-16.2 g/dL Hematocrit 40.0 36.0-46.0 % Mean Corpuscular Volume 90.9 80.0-100.0 fL Mean Corpuscular Hemoglobin 30.6 28.0-32.0 pg Mean Corpuscular Hemoglobin Concent 33.7 32.0-36.0 g/dL Red Cell Distribution Width 13.2 11.8-14.3 % Platelet Count 283 140-450 10^3/uL Mean Platelet Volume 6.8 L 6.9-10.8 fL Neutrophils (%) (Auto) 38.5 37.0-80.0 % Lymphocytes (%) (Auto) 46.6 10.0-50.0 % Monocytes (%) (Auto) 12.6 H 0.0-12.0 % Eosinophils (%) (Auto) 1.1 0.0-7.0 % Basophils (%) (Auto) 1.2 0.0-2.0 % Neutrophils # (Auto) 1.9 1.6-8.6 10 ^3/uL Lymphocytes # (Auto) 2.3 0.4-5.4 10 ^3/uL Monocytes # (Auto) 0.6 0-1.3 10 ^3/uL Eosinophils # (Auto) 0.1 0-0.8 10 ^3/uL Basophils # (Auto) 0.1 0-0.2 10 ^3/uL Nucleated Red Blood Cells 0.1 % Sodium Level 142 136-145 mmol/L Potassium Level 3.0 L 3.5-5.1 mmol/L Chloride Level 107 98-107 mmol/L Carbon Dioxide Level 28 20-31 mmol/L Anion Gap 7 5-15 Blood Urea Nitrogen 6 L 9-23 mg/dL Creatinine 0.91 0.550-1.02 mg/dL Glomerular Filtration Rate Calc 72 >90 mL/min BUN/Creatinine Ratio 6.6 L 10.0-20.0 Serum Glucose 100 74-106 mg/dL Calcium Level 9.4 8.7-10.4 mg/dL Patient alert. Complaining of chest pain. Vitals stable. Answering questions. No leg swelling. EKG reviewed does not show any acute changes. Cardiac marker within normal limits. Explained to the patient. Continue monitoring. Time of 1ST Reevaluation: 16:15 Reevaluation 1ST: Unchanged Patient Education/Counseling: Diagnosis, Treatment, Prognosis Family Education/Counseling: No Family Present SEPSIS Sepsis Screen Date sepsis recognized/suspect: Feb 28, 2025 Time Sepsis recognized/suspect: 1431 Recent Procedure: No On Antibiotic Therapy: No Respiratory Rate >20: No Heart Rate >90: No Temp<36 C (96.8 F) or >38.3 C: No SBP <90 or MAP <65 mmHG: No New Acute Mental Status Change: No Is the patient on CPAP, BIPAP,: No Physician Orders Urinalysis (02/28/25 14:30) Electrocardigram (02/28/25 14:38) Electrocardigram (02/28/25 15:38) Electrocardigram (02/28/25 17:38) Vital Signs Date Time Temp Pulse Resp B/P (MAP) Pulse Ox O2 Delivery O2 Flow Rate FiO2 02/28/25 15:49 94 02/28/25 14:40 94 02/28/25 14:29 98.9 104 18 129/77 95 98.9 Laboratory Tests Test 02/28/25 14:50 White Blood Count 5.0 10^3/uL (4.4-10.8) Departure 1 Departure Time of Disposition: 17:35 Impression: Primary Impression: Chest pain of unknown etiology Disposition: ADMITTED INPATIENT Admit to: Med Surg Condition: Guarded Critical Care Note Critical Care Time?: Yes (90 min-critical care time only) Stability Stability form required: No Heart Score Heart Score: Heart Score Response (Comments) Value History Slightly Suspicious 0 EKG Normal 0 Age 45-64 1 Risk Factors >3 or Hx ASHD 2 Troponin Normal limit 0 Total 3 I personally scribed for LUIS ECHOLS MD ([email or web address]) on 02/28/25 at 15:49. Electronically submitted by Kameron Castellon ([email or web address]). LUIS ECHOLS MD Feb 28, 2025 15:49
--- NOTE | 2025-02-28 20:14 | ECG ---
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
[2025-02-28 20:35] VITALS: BP 129/77; PULSE 88; RESP 17; TEMP 98.1; O2SAT 98
== END 2025-02-28 17:31 | disposition left against medical advice (07) ==
LOC: ER 14:27
DX: R07.89 Other chest pain (principal); I10 Essential (primary) hypertension; J45.909 Unspecified asthma, uncomplicated; F17.210 Nicotine dependence, cigarettes, uncomplicated; Z88.1 Allergy status to other antibiotic agents; Z88.2 Allergy status to sulfonamides; Z90.49 Acquired absence of other specified parts of digestive tract; Z90.89 Acquired absence of other organs; Z91.030 Bee allergy status; Z91.040 Latex allergy status; Z98.890 Other specified postprocedural states
CPT/HCPCS: 36415; 80048; 84484; 85025; 93005